=== PATIENT | female | born 1960 | race Caucasian/White ===

== ENCOUNTER 2021-07-15 19:20 | Outpatient (REF) | payer OTHER, SELFPAY | END 2021-07-15 19:21 | disposition home or self-care (01) | LOC: HO.LNP 19:20 | PROVIDERS: Visit Provider Family Medicine | DX: B34.9 Viral infection, unspecified (principal); Z20.822 Contact with and (suspected) exposure to COVID-19 | CPT/HCPCS: U0003; U0005 ==

== ENCOUNTER 2021-07-16 09:18 | Outpatient (REF) | payer OTHER, SELFPAY ==
[2021-07-16 10:55] LABS: Basophils Percent Auto 0.6 % (0-2); Eosinophils Percent Auto 1.2 % (0-4); Hematocrit 42.6 % (37-47); Hemoglobin 14.6 g/dl (12.0-16.0); Imm Gran Abs Auto 0.01 X10*3/uL (0.00-0.03); Imm Gran Pct Auto 0.3 % (0.0-0.4); Lymphocytes Absolute Auto 0.8 X10*3/uL (1.2-4.9); Lymphocytes Percent Auto 25.2 % (20-40); MANUAL DIFF FLAG SCAN; Mean Corpuscular HGB Conc 34.3 g/dl (31.0-35.0); Mean Corpuscular Hemoglobin 31.5 pg (27.0-33.0); Mean Platelet Volume 10.7 fL (9.4-12.3); Monocytes Absolute Auto 0.6 X10*3/uL (0.1-1.2); Neutrophils Absolute Auto 1.8 X10*3/uL (2.0-8.3); Neutrophils Percent Auto 55.7 % (45-73); Platelet Count 216 X10*3/uL (160-400); Red Blood Count 4.63 X10*6/uL (4.20-5.50); SCAN SMEAR FLAG 1; White Blood Count 3.3 X10*3/uL (4.8-10.8)
[2021-07-16 11:18] LABS: Alanine Aminotransferase 37 U/L (0-31); Albumin Level 4.1 g/dL (3.5-5.0); Alkaline Phosphatase 62 U/L (39-117); Anion Gap 16 (12-20); Aspartate Amino Transferase 35 U/L (5-31); Bilirubin Total 0.5 mg/dL (0.0-1.0); Blood Urea Nitrogen 3 mg/dL (9-16); Calcium 9.2 mg/dL (8.4-10.2); Carbon Dioxide 23 mmol/L (22-29); Chloride 104 mmol/L (96-108); Estimated Glomerular Filt Rate > 60; Glucose Random 109 mg/dL (60-115); Potassium 3.5 mmol/L (3.3-5.1); Sodium 139 mmol/L (135-145); Total Protein 7.1 g/dL (6.5-8.0)
[2021-07-16 11:30] LABS: SLIDE REVIEW VERIFIED
[2021-07-16 15:07] LABS: Leukocytes Stool Qualitative NEGATIVE (NEGATIVE)
[2021-07-16 15:23] LABS: CDiff Gene PCR NEGATIVE (Negative)
[2021-07-17 12:20] LABS: OBS Int Ctl Valid YES; OBS1 POSITIVE (NEGATIVE)
== END 2021-07-16 09:19 | disposition home or self-care (01) ==
LOC: HO.WFDLDS 09:18
PROVIDERS: Visit Provider Family Medicine
DX: Z00.00 Encounter for general adult medical examination without abnormal findings (principal); R19.7 Diarrhea, unspecified
CPT/HCPCS: 36415; 80053; 82272; 85025; 87045; 87046; 87493; 89055

== ENCOUNTER 2022-01-24 07:26 | Outpatient (REF) | payer OTHER, SELFPAY ==
[2022-01-24 07:34] LABS: MANUAL DIFF FLAG NO
[2022-01-24 08:42] LABS: Basophils Percent Auto 0.7 % (0-2); Eosinophils Absolute Auto 0.1 X10*3/uL (0.0-0.4); Eosinophils Percent Auto 1.9 % (0-4); Hemoglobin 12.9 g/dl (12.0-16.0); Imm Gran Abs Auto 0.01 X10*3/uL (0.00-0.03); Imm Gran Pct Auto 0.2 % (0.0-0.4); Lymphocytes Absolute Auto 1.5 X10*3/uL (1.2-4.9); Lymphocytes Percent Auto 34.7 % (20-40); Mean Corpuscular HGB Conc 33.1 g/dl (31.0-35.0); Mean Corpuscular Hemoglobin 31.4 pg (27.0-33.0); Mean Corpuscular Volume 94.9 fL (80.0-98.0); Mean Platelet Volume 10.5 fL (9.4-12.3); Monocytes Absolute Auto 0.5 X10*3/uL (0.1-1.2); Monocytes Percent Auto 12.8 % (2-11); Neutrophils Absolute Auto 2.1 x10*3/uL (2.0-8.3); Neutrophils Percent Auto 49.7 % (45-73); Platelet Count 250 X10*3/uL (160-400); Red Blood Count 4.11 X10*6/uL (4.20-5.50); Red Cell Distribution Width 11.6 % (11.0-16.0); White Blood Count 4.2 X10*3/uL (4.8-10.8)
[2022-01-24 09:16] LABS: Alanine Aminotransferase 18 U/L (0-31); Albumin Level 4.3 g/dL (3.5-5.0); Alkaline Phosphatase 52 U/L (39-117); Anion Gap 15 (12-20); Aspartate Amino Transferase 18 U/L (5-31); Bilirubin Total 0.9 mg/dL (0.0-1.0); Blood Urea Nitrogen 14 mg/dL (9-16); Calcium 9.7 mg/dL (8.4-10.2); Carbon Dioxide 25 mmol/L (22-29); Chloride 106 mmol/L (96-108); Cholesterol 276 mg/dL; Estimated Glomerular Filt Rate > 60; Glucose Fasting 98 mg/dL (60-99); HDL Cholesterol 122 mg/dL; LDL Cholesterol Calculated 136 mg/dl; Potassium 4.2 mmol/L (3.3-5.1); Sodium 142 mmol/L (135-145); Total Protein 7.1 g/dL (6.5-8.0); Triglycerides 91 mg/dL
== END 2022-01-24 07:27 | disposition home or self-care (01) ==
LOC: HO.LAB 07:26
PROVIDERS: PCP Internal Medicine; Visit Provider Internal Medicine
DX: Z00.00 Encounter for general adult medical examination without abnormal findings (principal)
CPT/HCPCS: 36415; 80053; 80061; 84443; 85025

== ENCOUNTER 2023-08-11 15:12 | Outpatient (REF) | payer OTHER, SELFPAY ==
--- NOTE | ~2023-08-11 | US_ITS ---
EXAMINATION: US THYROID CLINICAL INFORMATION: Other specified disorders of the thyroid. COMPARISON: None available. TECHNIQUE: Linear transducer grayscale and color Doppler examination with attention to the region of the thyroid. FINDINGS: SIZE: Measurements of the thyroid lobes and nodules are given in sagittal, anteroposterior and transverse dimensions respectively. Right Thyroid Lobe: 2.3 x 0.6 x 0.8 cm, volume 0.6 mL. Parenchyma: The gland echotexture is heterogeneous. Thyroid vascularity is normal. Left Thyroid Lobe: 2.8 x 0.7 x 0.9 cm, volume 0.93 mL. Parenchyma: The gland echotexture is heterogeneous. Thyroid vascularity is normal. Isthmus: 0.1 cm in maximum AP dimension. No focal thyroid nodule is seen. NODES: No lymphadenopathy is seen in the tissue surrounding the thyroid gland. Area of palpable concern corresponds to a benign-appearing 0.7 x 0.4 x 0.5 cm right cervical node. US/US thyroid IMPRESSION: Area of palpable concern corresponds to a benign-appearing 0.7 cm right cervical node. Heterogeneous thyroid which can be seen in the setting of thyroiditis.
== END 2023-08-11 15:13 | disposition home or self-care (01) ==
LOC: HO.US 15:12
PROVIDERS: PCP Internal Medicine; Visit Provider Internal Medicine
DX: E07.89 Other specified disorders of thyroid (principal)
CPT/HCPCS: 76536

== ENCOUNTER 2023-10-20 13:32 | Outpatient (AMB) | payer OTHER, SELFPAY ==
--- NOTE | 2023-10-20 13:36 | A.OFFPC_ITS ---
Vital Signs 10/20/23 13:37 Height 5 ft 6 in Weight 140 lb BMI 22.6 BP 150/78 H Blood Pressure Location Lt brachial Position Sitting Pulse 80 Pulse Source Pulse Oximeter Pulse Oximetry (%) 99 Oxygen Delivery Method Room Air Intake Visit Reasons: Annual Exam Sports Development Officer Required: No Project Systems Engineer: Not Required per policy Accompanied by: Self / Same As Patient Allergies No Known Allergies Allergy (Verified 10/20/23 13:37) Medication List - Last Reconciled 10/20/23 by Raul Medina MD clobetasol 0.05% grams topical 2XW hydrochlorothiazide 12.5 mg PO QAM levothyroxine 137 mcg PO DAILY Tobacco use date assessed: 10/20/23 Fall risk assessment: No Falls in past year Last assessed Fall Risk: 10/20/23 Dental Screening Dental Screen Date: 10/20/23 Did you have a dental visit in the last 12 months?: Yes Did you have a dental problem in the last 6 months where you did not have access to dental care?: No Was dental information given to patient?: Patient has dentist HPI Annual Exam HPI Details HTN and hypothyroidism PFSH Medical History Hypothyroidism Hypertension Surgical History History of parathyroidectomy History of wisdom tooth extraction History of tubal ligation Family History Father Pernicious anemia Hypertension Hyperthyroidism Myocardial infarction Diabetes Mother Hyperthyroidism Acute CVA (cerebrovascular accident) Valvular heart disease Paternal Grandmother Pernicious anemia Brother Hyperthyroidism Hypertension Housing: House Alcohol intake: current Alcohol intake frequency: a few times a week Patient Tobacco Use Status: Never used Tobacco e-Cigarette/Vaping Use: Never Used Second Hand Smoke Exposure: No service: No Current occupational status: employed Cognitive needs: No Hearing needs: No Vision needs: Yes (glasses) Questionnaire PHQ-9 Over the last 2 weeks, how often have you been bothered by any of the following problems? 1. Little interest or pleasure in doing things: not at all 2. Feeling down, depressed, or hopeless: not at all 3. Trouble falling or staying asleep, or sleeping too much: not at all 4. Feeling tired or having little energy: not at all 5. Poor appetite or overeating: not at all 6. Feeling bad about yourself - or that you are a failure or have let yourself or your family down: not at all 7. Trouble concentrating on things, such as reading the newspaper or watching television: not at all 8. Moving or speaking so slowly that other people could have noticed. Or the opposite - being so fidgety or restless that you have been moving around a lot more than usual: not at all 9. Thoughts that you would be better off or of hurting yourself in some way: not at all Total score: 0 Depression Screening Interpretation: Negative Depression Screening Done: Yes 47384 - PHQ-9 Billing: Yes Source: Developed by Drs. Hayder Arias, Melany Feng, Ciaran Boone and colleagues, with an educational cain from [employer]. Thrive Questionnaire Date Thrive assessed: 10/20/23 I am a: Patient What is your living situation today?: I have a steady place to live Within the past 12 months, did the food you bought not last and you didn't have the money to get more?: Never true Within the past 12 months, did you worry whether your food would run out before you got money to buy more?: Never true Do you have trouble paying for medicines?: No Do you have trouble getting transportation to medical appointments?: No Do you have trouble paying your heating and electricity bill?: No Do you have trouble taking care of your child, family member or friend?: No Do you have trouble with day-to-day activities such as bathing, preparing meals, shopping, managing finances, etc.?: No Are you currently unemployed and looking for a job?: No Are you interested in more education?: No Please select the resources that you would like help with: None AUDIT C Alcohol Use Questionnaire (AUDIT-C) 1. How often do you have a drink containing alcohol?: 2-3 times a week 2. How many drinks containing alcohol do you have on a typical day when you are drinking?: 1 or 2 Total Score: 3 Score Reviewed/Action Taken: Yes HIREN-7 AMB Questionnaire HIREN-7 Date HIREN - 7 assessed: 10/16/22 Source: Developed by Drs. Hayder Arias, Melany Feng, Ciaran Boone and colleagues, with an educational cain from [employer]. Review of Systems Const Denies chills, Denies fatigue, Denies headache(s) and Denies weight loss Eyes Denies change in vision, Denies diplopia and Denies eye pain ENT Denies vertigo, Denies dizziness, Denies headache(s) and Denies nasal discharge Card Denies chest pain, Denies rapid heart rate and Denies dyspnea on exertion Resp Denies chest congestion, Denies cough, Denies pain with cough and Denies dyspnea on exertion GI Denies abdominal pain, Denies hematochezia and Denies change in bowel habits Musc Denies myalgias, Denies arthralgias and Denies joint swelling Skin/Breast Denies lesions and Denies unusual bruising Neuro Denies vertigo, Denies dizziness, Denies headache(s) and Denies focal weakness Endo Denies fatigue Physical exam (Primary Care) Vital Signs: Last Vital Signs Pulse 80 10/20/23 13:37 BP 150/78 H 10/20/23 13:37 Pulse Ox 99 10/20/23 13:37 Oxygen Delivery Method Room Air 10/20/23 13:37 BMI result Body Mass Index 22.6 Tobacco/Smoking Status: Tobacco use Status Tobacco use date assessed 10/20/23 10/20/23 13:38 Patient Tobacco Use Status Never used Tobacco 10/20/23 13:38 e-Cigarette/Vaping Use Never Used 10/20/23 13:38 PHQ-9: PHQ-9 Score PHQ-9: Total score 0 10/20/23 13:42 Depression Screening Interpretation: Negative Thrive Assessment: Date of Thrive Assessment Date Thrive assessed 10/20/23 10/20/23 13:38 Const General: cooperative, healthy appearing and no acute distress Orientation/consciousness: oriented to person, oriented to place and oriented to time [facility] Head: Yes normal to inspection, Yes normocephalic and Yes atraumatic Mouth: Normal oral and palatal mucosa present and tongue normal Throat: Yes posterior oropharynx normal and Yes uvula midline Eyes General: appearance normal, both eyes and all related structures Neck Neck: Yes normal visual inspection, Yes full ROM and Yes no lymphadenopathy Thyroid: Thyroid normal Carotids: normal carotid upstroke Chest Chest palpation & inspection: normal inspection of the chest Resp Effort & Inspection: normal respiratory effort and able to speak in complete sentences Auscultation: clear to auscultation bilaterally Cardio Jugular venous distension: no JVD Palpation: normal PMI Rate: regular rate Rhythm: regular rhythm Heart sounds: S1 normal heart sound present and S2 normal heart sound present GI Inspection: Yes normal to inspection Palpation (GI): Soft to palpation and No hepatosplenomegaly present Auscultation: normal bowel sounds General: Yes no CVA tenderness Back/Spine/Pelvis Back: no CVA tenderness Skin General skin exam: no rashes or lesions noted Neuro General: oriented to person, oriented to place and oriented to time Extrem General: Yes normal to inspection and Yes full ROM Assessment and Plan Assessment & Plan (1) Physical exam: Code(s): Z00.00 - Encounter for general adult medical examination without abnormal findings Plan: stable (2) Hypothyroidism: Code(s): E03.9 - Hypothyroidism, unspecified Plan: same dose (3) Hypertension: Code(s): I10 - Essential (primary) hypertension Plan: recheck bp Orders: Orders Lipid Panel Today E78.5 - Hyperlipidemia, unspecified Thyroid Stimulating Hormone Today E03.9 - Hypothyroidism, unspecified Comprehensive [place]cas. Panel Fast Today N28.9 - Disorder of kidney and ureter, unspecified Complete Blood Count Auto Diff Today D64.9 - Anemia, unspecified Medications: New amoxicillin-pot clavulanate 500-125 mg (Augmentin) 1 tab PO BID PRN 10 tabs 0RF sinusitis 5 days Coding Level of Care Code New Pt Prev Care 40-64y(16288) Diagnoses Physical exam Z00.00 Hypothyroidism E03.9 Hypertension I10
[2023-10-20 13:37] VITALS: BP 150/78; PULSE 80; O2SAT 99; BMI 22.6
== END 2023-10-20 14:09 | disposition home or self-care (01) ==
PROVIDERS: Visit Provider Internal Medicine
DX: Z00.00 Encounter for general adult medical examination without abnormal findings (principal); E03.9 Hypothyroidism, unspecified; I10 Essential (primary) hypertension
CPT/HCPCS: 99386

== ENCOUNTER 2024-10-20 14:21 | Outpatient (AMB) | payer MEDICARE, SELFPAY ==
--- NOTE | 2024-10-20 14:21 | MHC.PC.OV ---
Vital Signs 10/20/24 14:24 Height 5 ft 6 in Weight 143 lb 2 oz BMI 23.1 BP 158/90 H Blood Pressure Location Lt brachial Position Sitting Pulse 80 Pulse Source Pulse Oximeter Pulse Oximetry (%) 97 Oxygen Delivery Method Room Air Intake Visit Reasons: annual Intake Note: Patient is here today for a physical. Bioinformatics Research Technician Required: No Technical Services Librarian: Not Required per policy Accompanied by: Self / Same As Patient Allergies No Known Allergies Allergy (Verified 10/20/24 14:23) Tobacco use date assessed: 10/20/24 Fall risk assessment: No Falls in past year Last assessed Fall Risk: 10/20/24 Dental Screening Dental Screen Date: 10/20/24 Did you have a dental visit in the last 12 months?: Yes Did you have a dental problem in the last 6 months where you did not have access to dental care?: No Was dental information given to patient?: Patient has dentist HPI annual HPI Details recently had a carotid endarterectome; has htn; compliant [facility] Medical History Hypothyroidism Hypertension Surgical History (Updated 10/20/24 @ 14:30 by NATHAN Perez) History of right-sided carotid endarterectomy History of parathyroidectomy History of wisdom tooth extraction History of tubal ligation Family History (Updated 10/20/24 @ 14:22 by NATHAN Perez) Father Pernicious anemia Hypertension Hyperthyroidism Myocardial infarction Diabetes Mother Hyperthyroidism Acute CVA (cerebrovascular accident) Valvular heart disease Paternal Grandmother Pernicious anemia Brother Hyperthyroidism Hypertension Social History Housing: House Alcohol intake: current Alcohol intake frequency: a few times a week Patient Tobacco Use Status: Never used Tobacco e-Cigarette/Vaping Use: Never Used Second Hand Smoke Exposure: No service: No Current occupational status: employed Cognitive needs: No Hearing needs: No Vision needs: Yes (glasses) Questionnaire PHQ-9 Over the last 2 weeks, how often have you been bothered by any of the following problems? 1. Little interest or pleasure in doing things: not at all 2. Feeling down, depressed, or hopeless: not at all 3. Trouble falling or staying asleep, or sleeping too much: not at all 4. Feeling tired or having little energy: not at all 5. Poor appetite or overeating: not at all 6. Feeling bad about yourself - or that you are a failure or have let yourself or your family down: not at all 7. Trouble concentrating on things, such as reading the newspaper or watching television: not at all 8. Moving or speaking so slowly that other people could have noticed. Or the opposite - being so fidgety or restless that you have been moving around a lot more than usual: not at all 9. Thoughts that you would be better off or of hurting yourself in some way: not at all Total score: 0 Depression Screening Interpretation: Negative Depression Screening Done: Yes Source: Developed by Drs. Hayder Arias, Melany Feng, Ciaran Boone and colleagues, with an educational cain from [employer]. Thrive Questionnaire Date Thrive assessed: 10/20/24 I am a: Patient What is your living situation today?: I have a steady place to live Within the past 12 months, did the food you bought not last and you didn't have the money to get more?: Never true Within the past 12 months, did you worry whether your food would run out before you got money to buy more?: Never true Do you have trouble paying for medicines?: No Do you have trouble getting transportation to medical appointments?: No Do you have trouble paying your heating and electricity bill?: No Do you have trouble taking care of your child, family member or friend?: No Do you have trouble with day-to-day activities such as bathing, preparing meals, shopping, managing finances, etc.?: No Are you currently unemployed and looking for a job?: No Are you interested in more education?: No Currently or been in a relationship where the following occur: No concerns reported THRIVE Score: 0 AUDIT C Alcohol Use Questionnaire (AUDIT-C) 1. How often do you have a drink containing alcohol?: 2-3 times a week 2. How many drinks containing alcohol do you have on a typical day when you are drinking?: 1 or 2 Total Score: 3 HIREN-7 AMB Questionnaire HIREN-7 Date HIREN - 7 assessed: 10/20/24 Feeling nervous, anxious, or on edge: 0 = Not at all Not being able to stop or control worryin = Not at all Worrying too much about different things: 0 = Not at all Trouble relaxin = Not at all Being so restless that it is hard to sit still: 0 = Not at all Becoming easily annoyed or irritable: 0 = Not at all Feeling afraid as if something awful might happen: 0 = Not at all Total HIREN-7 score (0-4 normal; 5-9 mild; 10-14 moderate; 15-21 severe): 0 Source: Developed by Drs. Hayder Arias, Melany Feng, Ciaran Boone and colleagues, with an educational cain from [employer]. Review of Systems Const Denies chills, Denies fatigue, Denies headache(s) and Denies weight loss Eyes Denies change in vision, Denies diplopia and Denies eye pain ENT Denies vertigo, Denies dizziness, Denies headache(s) and Denies nasal discharge Card Denies chest pain, Denies rapid heart rate and Denies dyspnea on exertion Resp Denies chest congestion, Denies cough, Denies pain with cough and Denies dyspnea on exertion GI Denies abdominal pain, Denies hematochezia and Denies change in bowel habits Musc Denies myalgias, Denies arthralgias and Denies joint swelling Skin/Breast Denies lesions and Denies unusual bruising Neuro Denies vertigo, Denies dizziness, Denies headache(s) and Denies focal weakness Endo Denies fatigue Physical exam (Primary Care) Vital Signs: Last Vital Signs Pulse 80 10/20/24 14:24 BP 158/90 H 10/20/24 14:24 Pulse Ox 97 10/20/24 14:24 Oxygen Delivery Method Room Air 10/20/24 14:24 BMI result Body Mass Index 23.1 Tobacco/Smoking Status: Tobacco use Status Tobacco use date assessed 10/20/24 10/20/24 14:32 Patient Tobacco Use Status Never used Tobacco 10/20/24 14:32 e-Cigarette/Vaping Use Never Used 10/20/24 14:32 PHQ-9: PHQ-9 Score PHQ-9: Total score 0 10/20/24 14:32 Depression Screening Interpretation: Negative Thrive Assessment: Date of Thrive Assessment Date Thrive assessed 10/20/24 10/20/24 14:32 Currently or been in a relationship where the following occur: No concerns reported Const General: cooperative, healthy appearing and no acute distress Orientation/consciousness: oriented to person, oriented to place and oriented to time HENMT Head: Yes normal to inspection, Yes normocephalic and Yes atraumatic Mouth: Normal oral and palatal mucosa present and tongue normal Throat: Yes posterior oropharynx normal and Yes uvula midline Eyes General: appearance normal, both eyes and all related structures Neck Neck: Yes normal visual inspection, Yes full ROM and Yes no lymphadenopathy Thyroid: Thyroid normal Carotids: normal carotid upstroke Chest Chest palpation & inspection: normal inspection of the chest Resp Effort & Inspection: normal respiratory effort and able to speak in complete sentences Auscultation: clear to auscultation bilaterally Cardio Jugular venous distension: no JVD Palpation: normal PMI Rate: regular rate Rhythm: regular rhythm Heart sounds: S1 normal heart sound present and S2 normal heart sound present GI Inspection: Yes normal to inspection Palpation (GI): Soft to palpation and No hepatosplenomegaly present Auscultation: normal bowel sounds General: Yes no CVA tenderness Back/Spine/Pelvis Back: no CVA tenderness Skin General skin exam: no rashes or lesions noted Neuro General: oriented to person, oriented to place and oriented to time Extrem General: Yes normal to inspection and Yes full ROM Coding Level of Care Code Est Pt Prev Care >65y(60878) Diagnoses Physical exam Z00.00 Hypertension I10 Hypothyroidism E03.9 Assessment & Plan Assessment & Plan (1) Physical exam: Code(s): Z00.00 - Encounter for general adult medical examination without abnormal findings Category: Medical Plan: stable; do labs (2) Hypertension: Code(s): I10 - Essential (primary) hypertension Category: Medical Plan: stable; same rx (3) Hypothyroidism: Code(s): E03.9 - Hypothyroidism, unspecified Category: Medical Plan: stable; same rx Orders: Orders US abdomen complete 10/20/24 R10.9 - Unspecified abdominal pain
[2024-10-20 14:24] VITALS: BP 158/90; PULSE 80; O2SAT 97; BMI 23.1
== END 2024-10-20 14:54 | disposition home or self-care (01) ==
PROVIDERS: PCP Internal Medicine; Visit Provider Internal Medicine
DX: I10 Essential (primary) hypertension (principal); E03.9 Hypothyroidism, unspecified

== ENCOUNTER → 2024-10-20 14:21 | Outpatient (BNVA) | payer MEDICARE, SELFPAY | PROVIDERS: PCP Internal Medicine; Visit Provider Internal Medicine | DX: Z00.00 Encounter for general adult medical examination without abnormal findings (principal); I10 Essential (primary) hypertension; E03.9 Hypothyroidism, unspecified | CPT/HCPCS: 96127; 99212 ==

== ENCOUNTER 2024-12-01 07:41 | Outpatient (REF) | payer MEDICARE, SELFPAY ==
--- NOTE | ~2024-12-01 | US_ITS ---
CLINICAL HISTORY: R10.9 - Unspecified abdominal pain Ultrasound of the abdomen Comparison: None Findings: The liver is normal in size, measuring 15.3cm. Normal echogenicity without focal lesions. No intrahepatic biliary ductal dilatation. No cholelithiasis. No gallbladder wall thickening or pericholecystic fluid. Negative Kim's sign. The common bile duct is normal, measuring 0.5cm. Unremarkable limited evaluation of the pancreas. No dilation of the pancreatic duct. The right kidney is normal in echogenicity and size, measuring 10.6cm. No hydronephrosis. There is nephrolithiasis measuring up to 0.7 cm. The left kidney is normal echogenicity and size, measuring 10.0cm. No hydronephrosis. There is nephrolithiasis measuring up to 1.2 cm. The spleen is without focal lesions and normal in size, measuring 9.5cm. There is a splenule measuring 1.6 x 1.6 x 1.9 cm The aorta and IVC are unremarkable. No ascites. Impression: No acute findings. Bilateral nephrolithiasis. This document has been electronically signed by: Kiersten Jang MD on 12/04/2024 17:12:54
== END 2024-12-01 07:42 | disposition home or self-care (01) ==
LOC: HO.US 07:41
PROVIDERS: PCP Internal Medicine; Visit Provider Internal Medicine
DX: R10.9 Unspecified abdominal pain (principal)
CPT/HCPCS: 76700

== ENCOUNTER → 2024-12-01 07:43 | Outpatient (BNV) | payer MEDICARE, SELFPAY | PROVIDERS: PCP Internal Medicine; Visit Provider Radiology Diagnostic Radiology | DX: R10.9 Unspecified abdominal pain (principal) | CPT/HCPCS: 76700 ==

== ENCOUNTER 2025-02-19 08:52 | Outpatient (AMB) | payer MEDICARE, OTHER, SELFPAY ==
--- NOTE | 2025-02-19 08:48 | A.OFFVIS_ITS ---
Intake Visit Reasons: bilateral kidney stones Intake Note: New patient presents today for initial visit for bilateral kidney stones Urology Medication:none Blood Thinner:Aspirin Antibiotic Allergies:none Allergies No Known Allergies Allergy (Verified 02/19/25 08:59) Medication List - Last Reconciled 02/19/25 by Kay Mccallum MD aspirin 81 mg PO DAILY clobetasol 0.05% grams topical 2XW ezetimibe 10 mg PO DAILY hydrochlorothiazide 12.5 mg PO QAM levothyroxine 137 mcg PO DAILY losartan 25 mg PO DAILY HPI Comments Details: Melany is a 64 year old female who is here for evaluation for kidney stones. 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 She states she has right sides pain. An abd US was done and bilateral nephrolithiasis was noted. Briefly discussed treatment options to include ESWL, pamphlet given. Emphasized the importance of adequate hydration- 48-64 ounces daily. Discussed Lemon has citrate which is a natural stone inhibitor. UA - today - blood negative. Abd US- 12/01/24--The right kidney is normal in echogenicity and size, measuring 10.6cm. No hydronephrosis. There is nephrolithiasis measuring up to 0.7 cm. The left kidney is normal echogenicity and size, measuring 10.0cm. No hydronephrosis. There is nephrolithiasis measuring up to 1.2 cm. Further evaluation with CTKUB, 24 hr urine. [facility] Medical History Hypothyroidism Hypertension Surgical History History of right-sided carotid endarterectomy History of parathyroidectomy History of wisdom tooth extraction History of tubal ligation Family History Father Pernicious anemia Hypertension Hyperthyroidism Myocardial infarction Diabetes Mother Hyperthyroidism Acute CVA (cerebrovascular accident) Valvular heart disease Paternal Grandmother Pernicious anemia Brother Hyperthyroidism Hypertension Social History Housing: House Alcohol intake: current Alcohol intake frequency: a few times a week Patient Tobacco Use Status: Never used Tobacco e-Cigarette/Vaping Use: Never Used Second Hand Smoke Exposure: No service: No Current occupational status: employed Cognitive needs: No Hearing needs: No Vision needs: Yes (glasses) Review of Systems Const All systems reviewed & are unremarkable except as noted in HPI and below Reports no additional complaints Eyes Reports no additional complaints ENT Reports no additional complaints Card Reports no additional complaints Resp Reports no additional complaints GI Reports no additional complaints Reports as per HPI Musc Reports no additional complaints Skin/Breast Reports system reviewed and no additional complaints, except as documented Neuro Reports no additional complaints Psych Reports no additional complaints Endo Reports no additional complaints Abdulaziz/Lymph Reports no additional complaints Aller/Immun Reports no additional complaints Physical Exam Const General: cooperative, healthy appearing and no acute distress Orientation/consciousness: patient oriented x3 HEENT Head: Yes normal to inspection, Yes normocephalic and Yes atraumatic Eyes Conjunctivae: conjunctivae normal Neck Neck: Yes normal visual inspection and Yes trachea midline Chest Chest palpation & inspection: normal inspection of the chest Resp Effort & Inspection: normal respiratory effort GI Inspection: Yes normal to inspection Neuro General: patient oriented x3 Psych Appearance: grossly normal Results Reviewed Results Reviewed: Date of Service: 12/01/24 Ultrasound of the abdomen Comparison: None Findings: The liver is normal in size, measuring 15.3cm. Normal echogenicity without focal lesions. No intrahepatic biliary ductal dilatation. No cholelithiasis. No gallbladder wall thickening or pericholecystic fluid. Negative Kim's sign. The common bile duct is normal, measuring 0.5cm. Unremarkable limited evaluation of the pancreas. No dilation of the pancreatic duct. The right kidney is normal in echogenicity and size, measuring 10.6cm. No hydronephrosis. There is nephrolithiasis measuring up to 0.7 cm. The left kidney is normal echogenicity and size, measuring 10.0cm. No hydronephrosis. There is nephrolithiasis measuring up to 1.2 cm. The spleen is without focal lesions and normal in size, measuring 9.5cm. There is a splenule measuring 1.6 x 1.6 x 1.9 cm The aorta and IVC are unremarkable. No ascites. Impression: No acute findings. Bilateral nephrolithiasis. Assessment & Plan Assessment & Plan (1) Bilateral kidney stones: Code(s): N20.0 - Calculus of kidney Category: Medical (2) Abdominal pain, right lateral: Code(s): R10.9 - Unspecified abdominal pain Category: Medical Plan CT KUB 24 hr urine Orders: Orders CT kidney stone Today N20.0 - Calculus of kidney, R10.9 - Unspecified abdominal pain Patient Instructions: The patient had an opportunity to ask questions regarding treatment plan. The patient expressed understanding and agreement with the above treatment plan. The patient is aware they should contact our office by phone for worsening of their current condition or the appearance of new symptoms. Compliance is encouraged with any medications and followup testing that is ordered. It is a privilege to be allowed the opportunity to participate in the urologic care of your patient. If you have any questions or concerns regarding treatment for the above conditions please do not hesitate to contact me. The office telephone contact is [phone]. This note is constructed in part using voice recognition software. While every effort has been made to ensure accuracy process safety specialist errors may have been included. Yours sincerely, Kay Mccallum MD Scribe Plan - Not visible on output: Patient was informed and verbally consented to the use of an ambient scribe for clinic note documentation during this visit. Coding Level of Care Code New Pt Level 4 (08223) Diagnoses Bilateral kidney stones N20.0 Abdominal pain, right lateral R10.9
== END 2025-02-19 09:39 | disposition home or self-care (01) ==
PROVIDERS: PCP Internal Medicine; Visit Provider Urology
DX: N20.0 Calculus of kidney (principal); R10.9 Unspecified abdominal pain; Z13.9 Encounter for screening, unspecified
CPT/HCPCS: 99204

== ENCOUNTER → 2025-02-19 08:52 | Outpatient (BNVA) | payer MEDICARE, SELFPAY | PROVIDERS: PCP Internal Medicine; Visit Provider Urology | DX: N20.0 Calculus of kidney (principal); R10.9 Unspecified abdominal pain | CPT/HCPCS: 81003; 99202 ==

== ENCOUNTER 2025-03-22 08:26 | Outpatient (AMB) | payer MEDICARE, OTHER, SELFPAY ==
[2025-03-22 08:37] VITALS: BP 138/90; PULSE 80; TEMP 36.8; O2SAT 95
--- NOTE | 2025-03-22 08:37 | AM.OFFWIN_ITS ---
Intake Vital Signs 03/22/25 08:37 Weight 145 lb BP 138/90 H Blood Pressure Location Lt brachial Position Sitting Pulse 80 Pulse Source Pulse Oximeter Temp 98.3 F Temp Source Oral Pulse Oximetry (%) 95 Oxygen Delivery Method Room Air Intake Visit Reasons: EP Sore throat Intake Note: Patient here for sore throat that started last night but has had some cold symptoms for about 1 week now. Patient Tobacco Use Status: Never used Tobacco Allergies No Known Allergies Allergy (Verified 03/22/25 08:38) Do you need a note to return to daycare/school/sports/work: Yes HPI HPI Comments History of Present Illness Details 64 y/o Female patient who presents to [facility] with c/o URI symptoms that started last . Reports Sore-throat since last night. [facility] Medical History (Updated 03/22/25 @ 09:05 by More Ignacio NP) Acute respiratory disease Hypothyroidism Hypertension Surgical History History of right-sided carotid endarterectomy History of parathyroidectomy History of wisdom tooth extraction History of tubal ligation Family History Father Pernicious anemia Hypertension Hyperthyroidism Myocardial infarction Diabetes Mother Hyperthyroidism Acute CVA (cerebrovascular accident) Valvular heart disease Paternal Grandmother Pernicious anemia Brother Hyperthyroidism Hypertension Social History Housing: House Alcohol intake: current Alcohol intake frequency: a few times a week Patient Tobacco Use Status: Never used Tobacco e-Cigarette/Vaping Use: Never Used Second Hand Smoke Exposure: No service: No Current occupational status: employed Cognitive needs: No Hearing needs: No Vision needs: Yes (glasses) Review of Systems Const All systems reviewed & are unremarkable except as noted in HPI and below Physical Exam Vital Signs: Last Vital Signs Temp 98.3 F 03/22/25 08:37 Pulse 80 03/22/25 08:37 BP 138/90 H 03/22/25 08:37 Pulse Ox 95 03/22/25 08:37 Oxygen Delivery Method Room Air 03/22/25 08:37 Const General: no acute distress Nutritional Appearance: well nourished Orientation/consciousness: patient oriented x3 HEENT Head: Yes normocephalic Ears: external ears normal and TM abnormal bulging and with fluid behind the TM bilateral General nose exam: Nasal discharge present Face and sinus: Yes sinus tenderness Mouth: Abnormal oral and palatal mucosa present erythematous Throat: Yes tonsils normal and Yes uvula midline Resp Effort & Inspection: normal respiratory effort and able to speak in complete sentences Auscultation: clear to auscultation bilaterally, no crackles, no rales, no rhonchi and no wheezes Cardio Rhythm: regular rhythm Heart sounds: S1 normal heart sound present and S2 normal heart sound present Neuro General: patient oriented x3, gait normal and moves all extremities Psych Speech and movement: Normal speech and movement present Results AMB Rapid Strep AMB Rapid Strep Negative Last Edit by DARIA Warren on 03/22/25 08:56 Results Reviewed Results Reviewed: Laboratory Last Values Strep Scn Rapid Clinic Negative 03/22/25 08:56 Assessment & Plan Assessment & Plan (1) Acute respiratory disease: Code(s): J06.9 - Acute upper respiratory infection, unspecified Plan: Rapid Strep Negative. OTC cold/Flu remedies. Acetaminophen for pain relief. Hydrate with Warm fluids and Honey. Orders: Orders AMB Rapid Strep Screen Today Z13.9 - Encounter for screening, unspecified Coding Level of Care Code Est Pt Level 4 (28214) Diagnoses Acute respiratory disease J06.9 Time Spent (min) 20
== END 2025-03-22 09:15 | disposition home or self-care (01) ==
PROVIDERS: Visit Provider Nurse Practitioner Family
DX: Z13.9 Encounter for screening, unspecified (principal); J06.9 Acute upper respiratory infection, unspecified

== ENCOUNTER → 2025-03-22 08:26 | Outpatient (BNVA) | payer MEDICARE, OTHER, SELFPAY | PROVIDERS: Visit Provider Nurse Practitioner Family | DX: J06.9 Acute upper respiratory infection, unspecified (principal) | CPT/HCPCS: 87880; 99212 ==

== ENCOUNTER 2025-05-22 07:20 | Outpatient (REF) | payer MEDICARE, OTHER, SELFPAY ==
--- NOTE | ~2025-05-22 | CT_ITS ---
CLINICAL HISTORY: N20.0 - Calculus of kidney CT abdomen and pelvis without contrast Comparison: None provided Findings: Lung bases clear. No acute bony abnormality. Degenerative change throughout the spine. Bilateral hip prostheses. 1.5 x 2.9 cm solid hypodense right hepatic lesion. This lies subcapsular lateral aspect of right lobe. Finding not otherwise assessable without IV contrast. Hemangioma is possible, recommend short-term follow-up. Pancreas, Spleen and adrenal glands unremarkable. Gallbladder within normal limits. Punctate bilateral nonobstructing renal stones. No ureteral stone or hydronephrosis. No evidence for aortic aneurysm. No free fluid or adenopathy in the pelvis. No diverticulitis. Appendix unremarkable. Hysterectomy. No adnexal abnormality. Impression: Indeterminate lateral right hepatic solid lesion Possible hemangioma, recommend follow-up hemangioma protocol CT or MRI Bilateral nonobstructing renal stones This document has been electronically signed by: Maxime Parra MD on 05/22/2025 23:44:11
--- OUTSIDE RECORDS SUMMARY | 2025-05-22 07:22 | XMS_ITS | Patient Health Record ---
Author Organization [facility] Address [address] [place] [address] Care Team Providers Care Professor Of Violin Name Role Phone Raul Medina MD Primary Care Provider Hayder Zapata Unavailable [phone] Reason For Referral No Information Medications Medication SIG (Take, Route, Fr equency, Duration) Notes Start Date End Date Status Levoxyl 137 MCG 1 tablet in the morn ing on an empty stomach Orally Once a day Active Immunizations Vaccine Route Administration Date Status Comme nts Influenza Unknown 10/03/2019 Administered Social History Alcohol Screen Question Answer Notes Did you have a drink contain ing alcohol in the past year? Yes How often did you have a dri nk containing alcohol in the past year? 2 to 4 times a month (2 points) How many drinks did you have on a typical day when you were drinking in the past year? 1 or 2 drinks (0 point) How often did you have 6 or more drinks on one occasion in the past year? Never (0 point) Points 2 Interpretation Negative Section Notes: She does not smoke or use an y significant amounts of alcohol She does not smoke or use an y significant amounts of alcohol Problems Problem Type SNOMED Code ICD Code Onset Dates Problem Status W/U Status Risk Notes Problem [id number] Encounter for screening for malignant neoplasm of colon (Z12.11) Active confirmed Problem [id number] Preprocedural examination (Z01.818) Active confirmed Plan Of Treatment Future Test Test Name Order Date COLONOSCOPY 03/04/2012 Next Appt Details Provider Name:Hayder Jamel Long , 06/13/2025 01:20:00 PM, [address], [address], [place], [address], Insurance Providers Payer Name Payer Address Payer Phone Subscriber Number Group Number Insured Name Patient Relationship to Insured Coverage Start Date Coverage End Date [employer] [place] [address] [address] [place] [address] [id number] CONNIE MORIN TERESA Self - patient is the insured MEDICARE OF [facility] [address] [place] [address] [phone] [id number] CONNIE MORIN TERESA Self - patient is the insured 4 Medical (General) History Medical History History ICD Code Hypothyroidism Denies AL,DM,CVA,Lung disease,renal dise ase Neg. screening colonoscopy in 02/2012 Surgical History Surgery Date(Month/Year) parathyroidectomy left hip replacement 11/06/2019 right hip replacement 11/2018 tubal ligation
== END 2025-05-22 07:21 | disposition home or self-care (01) ==
LOC: HO.CT 07:20
PROVIDERS: Visit Provider Urology
DX: N20.0 Calculus of kidney (principal); R10.9 Unspecified abdominal pain
CPT/HCPCS: 74176

== ENCOUNTER → 2025-05-22 07:21 | Outpatient (BNV) | payer MEDICARE, OTHER, SELFPAY | PROVIDERS: Visit Provider Radiology Diagnostic Radiology | DX: N20.0 Calculus of kidney (principal); K76.89 Other specified diseases of liver | CPT/HCPCS: 74176 ==

== ENCOUNTER 2025-05-24 08:26 | Outpatient (AMB) | payer OTHER, MEDICARE, SELFPAY ==
--- NOTE | 2025-05-24 08:33 | MHC.OFFVIS ---
Intake Visit Reasons: 13w/CT/[facility] Intake Note: Patient presents today for 13w follow up/CT/[facility] Abdomen & Pelvis CT 05/22 [facility] comp. 05/08 Urology Medication:none Blood Thinner:Aspirin Antibiotic Allergies:none Allergies No Known Allergies Allergy (Verified 07/06/25 11:25) HPI Comments Details: 05/24/25 History of Present Illness - The patient is a 64-year-old female presenting with recurrent kidney stones. - The patient has a history of recurrent kidney stones, with a recent CAT scan showing persistent bilateral nonobstructing kidney stones. - A 24-hour urine collection revealed a urine volume of 3.58 liters, normal urine calcium and oxalate levels, but elevated urine sodium at 221 mg. - The patient has a history of hyperthyroidism and is status post partial parathyroidectomy. - An incidental liver lesion measuring 1.5 x 2.9 cm was noted on a recent CT scan. Results - 24-hour urine collection: Urine volume 3.58 liters, urine calcium 178 mg, urine oxalate 25 mg, urine sodium 221 mg, urine citrate 506 mg. - CT scan (05/22/25): Persistent bilateral nonobstructing kidney stones, incidental liver lesion 1.5 x 2.9 cm. 02/19/25--Melany is a 64 year old female who is here for evaluation for kidney stones. 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 She states she has right sides pain. An abd US was done and bilateral nephrolithiasis was noted. Briefly discussed treatment options to include ESWL, pamphlet given. Emphasized the importance of adequate hydration- 48-64 ounces daily. Discussed Lemon has citrate which is a natural stone inhibitor. UA - today - blood negative. Abd US- 12/01/24--The right kidney is normal in echogenicity and size, measuring 10.6cm. No hydronephrosis. There is nephrolithiasis measuring up to 0.7 cm. The left kidney is normal echogenicity and size, measuring 10.0cm. No hydronephrosis. There is nephrolithiasis measuring up to 1.2 cm. Further evaluation with CTKUB, 24 hr urine. [facility] Medical History Acute respiratory disease Hypothyroidism Hypertension Surgical History History of right-sided carotid endarterectomy History of parathyroidectomy History of wisdom tooth extraction History of tubal ligation Family History Father Pernicious anemia Hypertension Hyperthyroidism Myocardial infarction Diabetes Mother Hyperthyroidism Acute CVA (cerebrovascular accident) Valvular heart disease Paternal Grandmother Pernicious anemia Brother Hyperthyroidism Hypertension Social History Housing: House Alcohol intake: current Alcohol intake frequency: a few times a week Patient Tobacco Use Status: Never used Tobacco e-Cigarette/Vaping Use: Never Used Second Hand Smoke Exposure: No service: No Current occupational status: employed Cognitive needs: No Hearing needs: No Vision needs: Yes (glasses) Review of Systems Const All systems reviewed & are unremarkable except as noted in HPI and below Reports no additional complaints Eyes Reports no additional complaints ENT Reports no additional complaints Card Reports no additional complaints Resp Reports no additional complaints GI Reports no additional complaints Reports as per HPI Musc Reports no additional complaints Skin/Breast Reports system reviewed and no additional complaints, except as documented Neuro Reports no additional complaints Psych Reports no additional complaints Endo Reports no additional complaints Abdulaziz/Lymph Reports no additional complaints Aller/Immun Reports no additional complaints Results Reviewed Results Reviewed: Date of Service: 05/22/25 CLINICAL HISTORY: N20.0 - Calculus of kidney CT abdomen and pelvis without contrast Comparison: None provided Findings: Lung bases clear. No acute bony abnormality. Degenerative change throughout the spine. Bilateral hip prostheses. 1.5 x 2.9 cm solid hypodense right hepatic lesion. This lies subcapsular lateral aspect of right lobe. Finding not otherwise assessable without IV contrast. Hemangioma is possible, recommend short-term follow-up. Pancreas, Spleen and adrenal glands unremarkable. Gallbladder within normal limits. Punctate bilateral nonobstructing renal stones. No ureteral stone or hydronephrosis. No evidence for aortic aneurysm. No free fluid or adenopathy in the pelvis. No diverticulitis. Appendix unremarkable. Hysterectomy. No adnexal abnormality. Impression: Indeterminate lateral right hepatic solid lesion Possible hemangioma, recommend follow-up hemangioma protocol CT or MRI Bilateral nonobstructing renal stones Date of Service: 12/01/24 Ultrasound of the abdomen Comparison: None Findings: The liver is normal in size, measuring 15.3cm. Normal echogenicity without focal lesions. No intrahepatic biliary ductal dilatation. No cholelithiasis. No gallbladder wall thickening or pericholecystic fluid. Negative Kim's sign. The common bile duct is normal, measuring 0.5cm. Unremarkable limited evaluation of the pancreas. No dilation of the pancreatic duct. The right kidney is normal in echogenicity and size, measuring 10.6cm. No hydronephrosis. There is nephrolithiasis measuring up to 0.7 cm. The left kidney is normal echogenicity and size, measuring 10.0cm. No hydronephrosis. There is nephrolithiasis measuring up to 1.2 cm. The spleen is without focal lesions and normal in size, measuring 9.5cm. There is a splenule measuring 1.6 x 1.6 x 1.9 cm The aorta and IVC are unremarkable. No ascites. Impression: No acute findings. Bilateral nephrolithiasis. Assessment & Plan Assessment & Plan (1) Bilateral kidney stones: Code(s): N20.0 - Calculus of kidney Category: Medical (2) Abdominal pain, right lateral: Code(s): R10.9 - Unspecified abdominal pain Category: Medical (3) Liver lesion: Code(s): K76.9 - Liver disease, unspecified Category: Medical Plan Plan - Recommend dietary modifications to reduce sodium intake due to elevated urine sodium levels. - Refer to nephrology for further evaluation of recurrent kidney stones. - Refer to gastroenterology for assessment of the incidental liver lesion. - Plan a follow-up ultrasound in nine months to monitor kidney stones. - Consider further imaging to accurately measure the size of the right kidney stone and discuss treatment options if it is larger than 5 mm. Orders: Orders US renal BI 9 Months N20.0 - Calculus of kidney Referrals Nephrology Referral N20.0 - Calculus of kidney Gastroenterology Referral K76.9 - Liver disease, unspecified Patient Instructions: The patient had an opportunity to ask questions regarding treatment plan. The patient expressed understanding and agreement with the above treatment plan. The patient is aware they should contact our office by phone for worsening of their current condition or the appearance of new symptoms. Compliance is encouraged with any medications and followup testing that is ordered. It is a privilege to be allowed the opportunity to participate in the urologic care of your patient. If you have any questions or concerns regarding treatment for the above conditions please do not hesitate to contact me. The office telephone contact is [phone]. This note is constructed in part using voice recognition software. While every effort has been made to ensure accuracy instrument lens grinder errors may have been included. Yours sincerely, Kay Mccallum MD Scribe Plan - Not visible on output: Patient was informed and verbally consented to the use of an ambient scribe for clinic note documentation during this visit. Coding Level of Care Code Est Pt Level 4 (08221) Complex EM visit Add On G2211 Diagnoses Bilateral kidney stones N20.0 Abdominal pain, right lateral R10.9 Liver lesion K76.9
--- OUTSIDE RECORDS SUMMARY | 2025-05-24 08:48 | XMS_ITS | Patient Health Record ---
Author Organization [facility] Address [address] [place] [address] Care Team Providers Care Business Intern Name Role Phone Raul Medina MD Primary Care Provider Hayder Zapata Unavailable [phone] Reason For Referral No Information Medications Medication [...] Problem Status W/U Status Risk Notes Problem [id number] Encounter for screening for malignant neoplasm of colon (Z12.11) Active confirmed Problem [id number] Preprocedural examination (Z01.818) Active confirmed Plan Of Treatment Future Test Test Name Order Date COLONOSCOPY 03/04/2012 Next Appt Details Provider Name:Hayder Jamel Long , 06/13/2025 01:20:00 PM, [address], [address], [place], [address], Insurance Providers Payer Name Payer Address Payer Phone Subscriber Number Group Number Insured Name Patient Relationship to Insured Coverage Start Date Coverage End Date [employer] [place] [address] [address] [place] [address] [id number] 3 CONNIE MORIN TERESA Self - patient is the insured MEDICARE OF [facility] [address] [place] [address] [phone] [id number] CONNIE MORIN TERESA Self - patient is the insured 4 Medical (General) History Medical History History ICD Code Hypothyroidism Denies PA,DM,CVA,Lung disease,renal dise ase Neg. screening colonoscopy in 02/2012 Surgical History Surgery Date(Month/Year) parathyroidectomy left hip replacement 11/06/2019 right hip replacement 11/2018 tubal ligation
== END 2025-05-24 09:27 | disposition home or self-care (01) ==
LOC: HO.HUSH 08:27
PROVIDERS: PCP Internal Medicine; Visit Provider Urology
DX: N20.0 Calculus of kidney (principal); R10.9 Unspecified abdominal pain; K76.9 Liver disease, unspecified
CPT/HCPCS: 99214

== ENCOUNTER 2025-07-06 11:09 | Outpatient (AMB) | payer OTHER, MEDICARE, SELFPAY ==
--- OUTSIDE RECORDS SUMMARY | 2025-07-06 11:14 | XMS_ITS | Patient Health Record ---
Author Organization [facility] Address [address] [place] [id number] Care Team Providers Care Drive Tester Name Role Phone Monserrat Cartwright Primary Care Provider Hayder Diaz Unavailable [phone] Allergies No Known Allergies Reason For Referral No Information Medications Medication SIG (Take, Route, Frequency, Duration) Notes Start Date End Date Status Levoxyl 137 MCG 1 tablet in the morn ing on an empty stomach Orally Once a day Active Zetia 10 MG 1 tablet Orally Once a day 06/13/2025 Active hydroCHLOROthiazide 12.5 MG 1 capsule in the morning Orally Once a day Active Aspirin 81 MG 1 tablet Orally Once a day Active Losartan Potassium 25 MG 1 tablet Orally Once a day Active Immunizations Vaccine Route Administration Date Status Comme nts Influenza Unknown 10/03/2019 Administered Influenza Unknown 08/15/2024 Administered Social History Alcohol Screen Question Answer [...] Problem Status W/U Status Risk Notes Problem Colon cancer screening (484413768) Colon cancer screening (Z12.11) Active confirmed Problem [id number] Preprocedural examination (Z01.818) Active confirmed Problem Liver mass (593863677) Liver mass (R16.0) Active confirmed Problem Abnormal findings diagnostic imaging of liver and biliary tract (915799526) Abnormal liver ultrasound (R93.2) Active confirmed Vital Signs Temperature 95.7 degrees Fahrenheit 06/13/2025 Blood pressure diastolic 01 mm Hg 06/13/2025 Height 66 in 06/13/2025 Blood pressure systolic 001 mm Hg 06/13/2025 Weight 146.4 lbs 06/13/2025 BMI 23.63 kg/m2 06/13/2025 Procedures Procedure Date Ordered Date Performed Result Body Sit e COLONOSCOPY 06/13/2025 N/A Encounters Encounter Location Date Provider Diagnosis [facility] [address] [place] [address] 06/13/2025 Hayder Long Liver mass R16.0 ; Abnormal liver ultrasound R93.2 and Colon cancer screening Z12.11 Assessments Encounter Date Diagnosis (ICD Code) Assessment Notes Treatment Notes Treatment Clinical Notes Section Notes 06/13/2025 Liver mass (ICD-10 - R16.0) Overall, Melany appears quite well and is not having any new or worrisome GI complaints. I did recommend a follow-up colonoscopy for screening purposes given her last exam being in 2011. We did review the rationale for this in regard to colon cancer prevention. Full consent has been obtained for this, including risks of bleeding and perforation. The procedure will be done with monitored anesthesia care. She was given the below instructions regarding adjustment of her medications for the procedure. We did review her family history of gastric cancer in her father and his brother. She is not having any upper GI symptoms whatsoever and does not have any risk factors for gastric cancer such as alcohol use or smoking. I do not think she definitively requires endoscopy for the family history of gastric cancer but I did advise her that if she would like to do that I can certainly do that on the same day and assess for any H. pylori in the stomach. I told her to let me know that and we could always add the upper endoscopy on to the colonoscopy for the same day. In regards to the liver lesion seen on the recent CT scan we did review that this appears to be a very incidental finding and most likely a hemangioma. Of note she did have an ultrasound of the liver in November 2024 that does not mention any liver lesion. I did recommend we try to get a MRI of the liver with contrast to further assess for a hemangioma. I shall check the below laboratories including an alpha-fetoprotei n level. If the MRI confirms the diagnosis of a hemangioma then I do not think any further evaluation of that would be required. Melany was comfortable with this plan. Thank you again for allowing me to participate in Melany's care. I shall continue to keep you advised of her progress. 06/13/2025 Abnormal liver ultrasound (ICD-10 - R93.2) Overall, Melany appears quite well and is not having any new or worrisome GI complaints. I did recommend a follow-up colonoscopy for screening purposes given her last exam being in 2011. We did review the rationale for this in regard to colon cancer prevention. Full consent has been obtained for this, including risks of bleeding and perforation. The procedure will be done with monitored anesthesia care. She was given the below instructions regarding adjustment of her medications for the procedure. We did review her family history of gastric cancer in her father and his brother. She is not having any upper GI symptoms whatsoever and does not have any risk factors for gastric cancer such as alcohol use or smoking. I do not think she definitively requires endoscopy for the family history of gastric cancer but I did advise her that if she would like to do that I can certainly do that on the same day and assess for any H. pylori in the stomach. I told her to let me know that and we could always add the upper endoscopy on to the colonoscopy for the same day. In regards to the liver lesion seen on the recent CT scan we did review that this appears to be a very incidental finding and most likely a hemangioma. Of note she did have an ultrasound of the liver in November 2024 that does not mention any liver lesion. I did recommend we try to get a MRI of the liver with contrast to further assess for a hemangioma. I shall check the below laboratories including an alpha-fetoprotei n level. If the MRI confirms the diagnosis of a hemangioma then I do not think any further evaluation of that would be required. Melany was comfortable with this plan. Thank you again for allowing me to participate in Melany's care. I shall continue to keep you advised of her progress. 06/13/2025 Colon cancer screening (ICD-10 - Z12.11) Overall, Melany appears quite well and is not having any new or worrisome GI complaints. I did recommend a follow-up colonoscopy for screening purposes given her last exam being in 2011. We did review the rationale for this in regard to colon cancer prevention. Full consent has been obtained for this, including risks of bleeding and perforation. The procedure will be done with monitored anesthesia care. She was given the below instructions regarding adjustment of her medications for the procedure. We did review her family history of gastric cancer in her father and his brother. She is not having any upper GI symptoms whatsoever and does not have any risk factors for gastric cancer such as alcohol use or smoking. I do not think she definitively requires endoscopy for the family history of gastric cancer but I did advise her that if she would like to do that I can certainly do that on the same day and assess for any H. pylori in the stomach. I told her to let me know that and we could always add the upper endoscopy on to the colonoscopy for the same day. In regards to the liver lesion seen on the recent CT scan we did review that this appears to be a very incidental finding and most likely a hemangioma. Of note she did have an ultrasound of the liver in November 2024 that does not mention any liver lesion. I did recommend we try to get a MRI of the liver with contrast to further assess for a hemangioma. I shall check the below laboratories including an alpha-fetoprotei n level. If the MRI confirms the diagnosis of a hemangioma then I do not think any further evaluation of that would be required. Melany was comfortable with this plan. Thank you again for allowing me to participate in Melany's care. I shall continue to keep you advised of her progress. Plan Of Treatment Pending Test Test Name Order Date COLONOSCOPY 06/13/2025 BUN 06/13/2025 LIVER PROFILE 06/13/2025 CEA 06/13/2025 CBC w DIFF 06/13/2025 ALPHA-FETOPROTEIN,TUMOR MARKER MRI ABD W&WO CONTRAST 06/13/2025 Creatinine 06/13/2025 Future Test Test Name Order Date COLONOSCOPY 03/04/2012 Next Appt Details Provider Name:Hayder Long , 09/05/2025 10:40:00 AM, [address] [place] [address] [place], [phone], Insurance Providers Payer Name Payer Address Payer Phone Subscriber Number Group Number Insured Name Patient Relationship to Insured Coverage Start Date Coverage End Date [employer] [address] [address] [place] [address] [id number] MELANY STUART Self - patient is the insured Medical (General) History Medical History History ICD Code Hypothyroidism Denies NM,DM,CVA,Lung disease,renal dise ase Neg. screening colonoscopy in 02/2012 TIA HTN Kidney stones Liver lesion of the right he patic lobe seen on CT scan without contrast in April 2025. Surgical History Surgery Date(Month/Year) right carotid endarterectomy 06/2024 tubal ligation right hip replacement 11/2018 left hip replacement 11/06/2019 parathyroidectomy
--- NOTE | 2025-07-06 11:22 | HO.NEPHOV_ITS ---
Vital Signs 07/06/25 11:26 Height 5 ft 6 in Weight 144 lb 6 oz BMI 23.3 BP 132/70 Blood Pressure Location Lt brachial Position Sitting Pulse 76 Pulse Source Pulse Oximeter Pulse Oximetry (%) 98 Oxygen Delivery Method Room Air Intake Visit Reasons: INP: Calculus of kidney-LVM Bookbinder Apprentice Required: No Accompanied by: Self / Same As Patient Allergies No Known Allergies Allergy (Verified 07/06/25 11:25) HPI Comments Details: 4-year-old lady with past medical history of hypertension, hyperthyroidism, status post partial parathyroidectomy for hyperparathyroidism in does not remember much details about it, it was done after a 24 hour urine checkup which showed hypercalcuria and recurrent renal stones is here to establish care. She had [facility] done on 05/08/2025 which showed 3.5 L urine volume, high uric acid content in the urine, high urine sodium, pH 6.7, low citrate in urine and low calcium oxalate super saturations. She had CT abdomen and pelvis done in 04/2025 which showed bilateral multiple kidney stones with largest on the right measuring 5.5 mm similar finding were noted on ultrasound in November 2024 [facility] Medical History Acute respiratory disease Hypothyroidism Hypertension Surgical History History of right-sided carotid endarterectomy History of parathyroidectomy History of wisdom tooth extraction History of tubal ligation Family History Father Pernicious anemia Hypertension Hyperthyroidism Myocardial infarction Diabetes Mother Hyperthyroidism Acute CVA (cerebrovascular accident) Valvular heart disease Paternal Grandmother Pernicious anemia Brother Hyperthyroidism Hypertension Social History Housing: House Alcohol intake: current Alcohol intake frequency: a few times a week Patient Tobacco Use Status: Never used Tobacco e-Cigarette/Vaping Use: Never Used Second Hand Smoke Exposure: No service: No Current occupational status: employed Cognitive needs: No Hearing needs: No Vision needs: Yes (glasses) Review of Systems Const Details: Const : no body aches, no chills, no fever Eyes: no blurry vision and no change in vision ENT: no bleeding gums and no change in voice, no dizziness Card: no chest pain, no shortness of breath, no orthopnea, no PND Resp: no cough, no excessive phlegm production, no SOB GI: no abdominal pain and no nausea, no vomiting : no hematuria, no urinary frequency and no difficulty voiding Musc: no abnormal gait, no bone pain Neuro: no abnormal movements, no weakness, no dizziness, no abnormal gait Psych: no behavioral changes and no change in appetite Endo: no change in body appearance, no cold intolerance, no excessive sweating and no fatigue Physical Exam Vital Signs: Last Vital Signs Pulse 76 07/06/25 11: BP 132/70 07/06/25 11: Pulse Ox 98 07/06/25 11: Oxygen Delivery Method Room Air 07/06/25 11:26 BMI result Body Mass Index 23.3 General: not in any acute distress, comfortable, sitting on the chair Nutritional Appearance: well nourished and normal weight Eyes: normal position, no icterus Neck: No lymphadenopathy, no thyromegaly Resp: bilateral air entry equal, no added sounds present Cardio: normal S1, S2 heard, no murmur heard, no edema GI: soft, nontender, no guarding, no hepatosplenomegaly : bladder normal to inspection, bladder normal to palpation, no renal angle tenderness Skin: no rashes or lesions noted and elasticity normal Neuro: oriented to person, oriented to place, oriented to time and moves all extremities Assessment & Plan Assessment & Plan (1) Hypertension: Code(s): I10 - Essential (primary) hypertension Category: Medical (2) Hypothyroidism: Code(s): E03.9 - Hypothyroidism, unspecified Category: Medical (3) Renal stone: Code(s): N20.0 - Calculus of kidney Category: Medical Plan Kidney stones: - unclear exact stone type - She had [facility]olink done on 05/08/2025 which showed 3.5 L urine volume, high uric acid content in the urine, high urine sodium, pH 6.7, low citrate in urine and low calcium oxalate super saturations. - She had CT abdomen and pelvis done in 04/2025 which showed bilateral multiple kidney stones with largest on the right measuring 5.5 mm similar finding were noted on ultrasound in November 2024 - will get serum calcium PTH Vitamin-D level and uric acid levels - advised the patient for fluid intake at least 3 L per day, more so in summer - low-sodium diet, increased dairy products with the meals, increased ute and citrous intake (without added sugar) - decrease animal protein, avoid sugar sweetened sodas, fruit punch, grapefruit and large volume cranberry juice Hypertension: - on losartan and hydrochlorothiazide - as her blood pressures are on the higher side we will increase the hydrochlorothiazide to 25 mg daily as it has benefits on renal stone reduction This note is constructed using voice recognition software. While every effort has been made to ensure accuracy moid [employer] teacher errors may have been included. Orders: Orders Parathyroid Hormone Intact 2 Days E03.9 - Hypothyroidism, unspecified, I10 - Essential (primary) hypertension, N20.0 - Calculus of kidney Vitamin D 25-OH Total 2 Days E03.9 - Hypothyroidism, unspecified, I10 - Essential (primary) hypertension, N20.0 - Calculus of kidney Basic Metabolic Panel 2 Days E03.9 - Hypothyroidism, unspecified, I10 - Essential (primary) hypertension, N20.0 - Calculus of kidney Microalbumin, Random (w Creat) 2 Days E03.9 - Hypothyroidism, unspecified, I10 - Essential (primary) hypertension, N20.0 - Calculus of kidney Phosphorus 2 Days E03.9 - Hypothyroidism, unspecified, I10 - Essential (primary) hypertension, N20.0 - Calculus of kidney UA and rflx microscopic 2 Days E03.9 - Hypothyroidism, unspecified, I10 - Essential (primary) hypertension, N20.0 - Calculus of kidney Uric Acid 2 Days E03.9 - Hypothyroidism, unspecified, I10 - Essential (primary) hypertension, N20.0 - Calculus of kidney Coding Level of Care Code New Pt Level 4 (46270) Diagnoses Hypertension I10 Hypothyroidism E03.9 Renal stone N20.0
[2025-07-06 11:26] VITALS: BP 132/70; PULSE 76; O2SAT 98; BMI 23.3
== END 2025-07-06 11:54 | disposition home or self-care (01) ==
LOC: HO.HKA 11:10
PROVIDERS: PCP Internal Medicine; Referring Provider Urology; Visit Provider Internal Medicine Critical Care Medicine
DX: I10 Essential (primary) hypertension (principal); E03.9 Hypothyroidism, unspecified; N20.0 Calculus of kidney
CPT/HCPCS: 99204

== ENCOUNTER 2025-07-23 10:01 | Outpatient (REF) | payer OTHER, MEDICARE, SELFPAY ==
--- OUTSIDE RECORDS SUMMARY | 2025-07-23 11:03 | XMS_ITS | Encounter Summary ---
Author Organization [facility] Address [address] [place] [address] Phone Care Team Providers Care Life Insurance Agent Name Role Phone Raul Medina MD Primary Care Provider [phone] Pcp, Unknown Unavailable Unavailable Raul Medina MD Unavailable [phone] Maninder Warren MD Unavailable [phone] Encounter Details Date Type Department Care Team (Late st Contact Info) Description 12/14/2023 Transcribe Orders Virtual Department [address] [place] [address] Raul Medina MD [address] [place] [address] [place] [address] Breast screening (Primary Dx) Social History Tobacco Use Types Packs/Day Years Used Date Smoking Tobacco: Never Smokeless Tobacco: Never Alcohol Use Standard Drinks/Week Comments Yes 4 (1 standard drink = 0.6 oz pur [...] PM EST Sexual Orientation Not on file documented as of this encounter Plan of Treatment Upcoming Encounters Date Type Department Care Team (Late st Contact Info) Description 05/08/2025 Procedure Pass [address] [address] 12/07/2025 9:15 AM EST Appointment [address] [address] Raul Medina MD [address] [place] [address] [place] [address] documented as of this encounter Results * BI MAMMOGRAM SCREENING WITH TOMOSYNTHESIS WITH CAD (BILATERAL) (02/18/2024 3:48 PM EDT) Anatomical Region Laterality Modality Breast Left, Breast Right, Breast Bilateral Bila teral Mammography 02/23/2024 9:15 AM EDT Impressions 02/23/2024 9:16 AM EDT No mammographic evidence of malignancy in either breast. Annual screening mammography is recommended. BI-RADS 1 NEGATIVE The patient will be notified of the results and recommendations. Narrative 02/23/2024 9:16 AM EDT BI MAMMOGRAM SCREENING WITH TOMOSYNTHESIS WITH CAD (BILATERAL) Additional patient information: Screening. COMPARISON: Comparison is made with relevant prior imaging. Breast composition: There are scattered areas of fibroglandular density. FINDINGS: No abnormal masses, suspicious calcifications, or other significant findings are identified mammographically in either breast. Procedure Note Thea Kate MD - 02/23/2024 BI MAMMOGRAM SCREENING WITH TOMOSYNTHESIS WITH CAD (BILATERAL) Additional patient information: Screening. COMPARISON: Comparison is made with relevant prior imaging. Breast composition: There are scattered areas of fibroglandular density. FINDINGS: No abnormal masses, suspicious calcifications, or other significantfindings are identified mammographically in either breast. IMPRESSION: No mammographic evidence of malignancy in either breast. Annual screening mammography is recommended. BI-RADS 1 NEGATIVE The patient will be notified of the results and recommendations. Raul Medina MD IMG MG EXAMS Final Result documented in this encounter Visit Diagnoses Diagnosis Breast screening- Primary Breast screening, unspecified Breast screening Breast screening, unspecified documented in this encounter Care Teams Life Insurance Agent Relationship Specialty Start Date End Date Raul Medina MD [address] [place] [address] Dr Mason [address] [place] [id number] PCP - General Internal Medicine 10/25/17 Pcp, Unknown 09/18/17 Raul Medina MD [address] [place] [address] Dr Mason [address] [place] [address] Historical LMR Provider 09/13/17 Maninder Warren MD [address] [place] [address] Historical LMR Provider 09/13/17 documented as of this encounter Additional Source Comments The information contained in this document represents components of the legal health record. It is not the complete legal health record.[facility]
[2025-07-23 11:07] LABS: MANUAL DIFF FLAG NO
[2025-07-23 11:30] LABS: Hematocrit 37.2 % (37.0-47.0); Hemoglobin 12.5 g/dl (12.0-16.0); Imm Gran Abs Auto 0.01 X10*3/uL (0.00-0.03); Imm Gran Pct Auto 0.2 % (0.0-0.4); Lymphocytes Absolute Auto 1.3 X10*3/uL (1.2-4.9); Mean Corpuscular HGB Conc 33.6 g/dl (31.0-35.0); Mean Corpuscular Hemoglobin 32.1 pg (27.0-33.0); Mean Corpuscular Volume 95.4 fL (80.0-98.0); NRBC Abs Auto 0.000 X10*3/uL (0.0-0.012); NRBC Pct Auto 0.0 /100WBC (0.0-0.2); Platelet Count 246 X10*3/uL (160-400); Red Blood Count 3.90 X10*6/uL (4.20-5.50); White Blood Count 4.3 X10*3/uL (4.8-10.8)
[2025-07-23 11:59] LABS: Parathyroid Hormone Intact 68.5 pg/mL (8.7-77.1)
[2025-07-23 14:27] LABS: Appearance Urine Clear; Glucose Urine UA Negative (Negative); PH 8.5 (5.0-9.0); Specific Gravity - Urine 1.015 (1.005-1.025); UMIC TRIGGER UA YES
[2025-07-23 14:45] LABS: Alanine Aminotransferase 28 U/L (0-31); Albumin Level 4.2 g/dL (3.5-5.0); Alkaline Phosphatase 54 U/L (39-117); Aspartate Amino Transferase 36 U/L (5-31); Blood Urea Nitrogen 16 mg/dL (9-16); Estimated Glomerular Filt Rate > 60; Total Protein 6.7 g/dL (6.5-8.0)
[2025-07-23 14:46] LABS: Anion Gap 13 (12-20); Blood Urea Nitrogen 16 mg/dL (9-16); Calcium 9.2 mg/dL (8.4-10.2); Carbon Dioxide 27 mmol/L (22-29); Chloride 103 mmol/L (96-108); Estimated Glomerular Filt Rate > 60; Potassium 4.2 mmol/L (3.3-5.1); Sodium 139 mmol/L (135-145); Uric Acid 5.8 mg/dL (2.4-5.7)
[2025-07-23 14:53] LABS: Carcinoembryonic Antigen 2.60 ng/mL
== END 2025-07-23 10:02 | disposition home or self-care (01) ==
LOC: HO.WFDLDS 10:01
PROVIDERS: Internal Medicine; Visit Provider Internal Medicine Critical Care Medicine
DX: N20.0 Calculus of kidney (principal); E03.9 Hypothyroidism, unspecified; I10 Essential (primary) hypertension; Z13.21 Encounter for screening for nutritional disorder
CPT/HCPCS: 36415; 80048; 80076; 81001; 82105; 82306; 82378; 82565; 82570; 83970; 84100; 84520; 84550; 85025

== ENCOUNTER 2025-08-06 08:20 | Outpatient (AMB) | payer MEDICARE, OTHER, SELFPAY ==
--- OUTSIDE RECORDS SUMMARY | 2024-09-07 17:10 | XMS_ITS | Encounter Summary ---
Author Organization [facility] Address [address] [place] [address] Phone Care Team Providers Care Hl7 Developer Name Role Phone Raul Medina MD Primary Care Provider [phone] Pcp, Unknown Unavailable Unavailable Raul Medina MD Unavailable [phone] Maninder Warren MD Unavailable [phone] Encounter Details Date Type Department Care Team (Late st Contact Info) Description 09/07/2024 5:10 PM EDT Hospital Encounter [facility] [address] [place] [id number] Marline Mares CNP [address] [place] [address] [email or web address] Social History Tobacco Use Types Packs/Day Years Used Date Smoking Tobacco: Never Passive Smoke Exposure: Never Smokeless Tobacco: Never Alcohol Use Standard Drinks/Week Comments Yes 3 (1 standard drink = 0.6 oz pur e alcohol) Education Answer Date Recorded Are you interested in more education? Not on yumiko e 03/26/2023 Are you concerned about learning? Not on file 03/26/2023 No 03/26/2023 No 03/26/2023 Digital Access Answer Date Recorded No 04/24/2023 No 04/24/2023 Reliable internet access at home? Not on file 04/24/2023 Device with a working camera? 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 Not on file Not on file Not on file documented as of this encounter Plan of Treatment Upcoming Encounters Date Type Department Care Team (Late st Contact Info) Description 05/08/2025 Procedure Pass [address] [address] 12/07/2025 9:15 AM EST Appointment [address] [address] Raul Medina MD [address] [place] [address] [place] [address] documented as of this encounter Procedures Procedure Name Priority Date/Time Associated Diagnosis Comments XR HIP 2 VW RIGHT PLUS PELVIS Routine 09/07/2024 5:27 PM EDT Acute right hip pain documented in this encounter Results * XR HIP 2 VW RIGHT PLUS PELVIS (09/07/2024 5:27 PM EDT) Anatomical Region Laterality Modality Hip, Pelvis Computed Radiogr aphy 09/07/2024 5:56 PM EDT Impressions 09/07/2024 6:04 PM EDT Anticipated surgical changes of right hip arthroplasty. Previous left hip arthroplasty. No acute osseous abnormality. Narrative 09/07/2024 6:04 PM EDT XR HIP 2 VW RIGHT PLUS PELVIS Referring clinician's provided indication for this examination in Epic: Pain; S/P Joint Replacement; Posterior hip replacement 2019, going up to stairs yesterday when felt a sudden pop and has sharp pain posterior iliac crest COMPARISON: None FINDINGS: Pelvis: Bilateral total hip arthroplasties are in place. Femoral and acetabular components are well aligned for situation. Degenerative changes of the spine are present. Right hip: Surgical changes of right hip arthroplasty. No acute fracture or dislocation. Procedure Note Miriam Pickens MD, PhD - 09/07/2024 XR HIP 2 VW RIGHT PLUS PELVIS Referring clinician's provided indication for this examination in Epic:Pain; S/P Joint Replacement; Posterior hip replacement 2019, going up tostairs yesterday when felt a sudden pop and has sharp pain posterior iliaccrest COMPARISON: None FINDINGS: Pelvis: Bilateral total hip arthroplasties are in place. Femoral andacetabular components are well aligned for situation. Degenerative changesof the spine are present. Right hip: Surgical changes of right hip arthroplasty. No acute fractureor dislocation. IMPRESSION: Anticipated surgical changes of right hip arthroplasty. Previous left hiparthroplasty. No acute osseous abnormality. Marline Mares MATERIAL PROCESSOR IMG XR PELVIS Final Resul t documented in this encounter Visit Diagnoses Not on filedocumented in this encounter Care Teams Hl7 Developer Relationship Specialty Start Date End Date Raul Medina MD [address] [place] [address] Dr Mason [address] [place] [phone] PCP - General Internal Medicine 10/25/17 Pcp, Unknown 09/18/17 Raul Medina MD [address] [place] [address] Dr Mason [address] [place] [phone] Historical LMR Provider 09/13/17 Maninder Warren MD [address] [place] [phone] Historical LMR Provider 09/13/17 documented as of this encounter Additional Source Comments The information contained in this document represents components of the legal health record. It is not the complete legal health record.[facility]
--- NOTE | 2025-08-06 08:22 | A.OFFPC_ITS ---
Vital Signs 08/06/25 08:23 Height 5 ft 6 in Weight 139 lb 6 oz BMI 22.5 BP 120/64 Blood Pressure Location Lt brachial Position Sitting Pulse 66 Pulse Source Pulse Oximeter Temp 97.1 F Temp Source Temporal Artery Scan Pulse Oximetry (%) 97 Oxygen Delivery Method Room Air Intake Visit Reasons: ADOLFO DR Medina Intake Note: Patient is here today for ADOLFO from Dr Medina Staff Psychologist Required: No Printed Circuit Board Panels Trimmer: Not Required per policy Accompanied by: Self / Same As Patient Allergies No Known Allergies Allergy (Verified 08/06/25 08:23) Medication List - Last Reconciled 08/06/25 by Monserrat Aguilar PA-C aspirin 81 mg PO DAILY clobetasol 0.05% grams topical 2XW ezetimibe 10 mg PO DAILY hydrochlorothiazide 25 mg PO DAILY hydroxyzine HCl 10 mg PO TID PRN levothyroxine 137 mcg PO DAILY losartan 25 mg PO DAILY Tobacco use date assessed: 08/06/25 Fall risk assessment: No Falls in past year Last assessed Fall Risk: 08/06/25 Dental Screening Dental Screen Date: 08/06/25 Did you have a dental visit in the last 12 months?: Yes Did you have a dental problem in the last 6 months where you did not have access to dental care?: No Was dental information given to patient?: Patient has dentist HPI ADOLFO DR Medina HPI Details 64-year-old female with past medical his tory of hypertension, hypothyroidism, kidney stones last seen 09/[address] Medina coming in for transfer of care. In review of the notes, patient was seen by Nephrology 06/2025 s/p Litholink 05/08/2025 ordered for blood work to look for etiology of stones and increase fluid intake. Hydrochlorothiazide was increased to 25 mg for kidney stone reduction and blood pressure control. Seen by urology 04/2025 referred to GI for incidental liver lesion and plan for repeat ultrasound in 9 months to monitor kidney stones. Presenting for management of nephrolithiasis and preventative care. The patient was referred to a provisioning specialist and urologist after an incidental finding of kidney stones during an ultrasound for abdominal pain. The provisioning specialist increased her hydrochlorothiazide dosage to help manage the kidney stones, which are small and numerous. The patient has not had her cholesterol checked in a year and is due for testing. The patient is due for a thyroid function test as part of her routine monitoring. The patient reports consuming one alcoholic drink daily and expresses a desire to stop due to concerns about aging and potential falls. She acknowledges that her alcohol consumption may be related to anxiety and stress, and is open to trying hydroxyzine and counseling for management. The patient had a carotid endarterectomy a year ago and is scheduled for follow-up imaging in August. 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 Long [facility] Medical History Acute respiratory disease Hypothyroidism Hypertension Surgical History History of right-sided carotid endarterectomy History of parathyroidectomy History of wisdom tooth extraction History of tubal ligation Family History Father Pernicious anemia Hypertension Hyperthyroidism Myocardial infarction Diabetes Mother Hyperthyroidism Acute CVA (cerebrovascular accident) Valvular heart disease Paternal Grandmother Pernicious anemia Brother Hyperthyroidism Hypertension Social History Housing: House Alcohol intake: current Alcohol intake frequency: a few times a week Patient Tobacco Use Status: Never used Tobacco e-Cigarette/Vaping Use: Never Used Second Hand Smoke Exposure: No service: No Current occupational status: employed Cognitive needs: No Hearing needs: No Vision needs: Yes (glasses) Questionnaire PHQ-9 Over the last 2 weeks, how often have you been bothered by any of the following problems? 1. Little interest or pleasure in doing things: not at all 2. Feeling down, depressed, or hopeless: not at all 3. Trouble falling or staying asleep, or sleeping too much: several days 4. Feeling tired or having little energy: not at all 5. Poor appetite or overeating: not at all 6. Feeling bad about yourself - or that you are a failure or have let yourself or your family down: not at all 7. Trouble concentrating on things, such as reading the newspaper or watching television: not at all 8. Moving or speaking so slowly that other people could have noticed. Or the opposite - being so fidgety or restless that you have been moving around a lot more than usual: not at all 9. Thoughts that you would be better off or of hurting yourself in some wa y: not at all Total score: 1 Depression Screening Interpretation: Negative Depression Screening Done: Yes Source: Developed by Drs. Hayder Arias, Melany Feng, Ciaran Boone and colleagues, with an educational cain from [employer]. Thrive Questionnaire Date Thrive assessed: 08/06/25 I am a: Patient What is your living situation today?: I have a steady place to live Within the past 12 months, did the food you bought not last and you didn't have the money to get more?: Never true Within the past 12 months, did you worry whether your food would run out before you got money to buy more?: Never true Do you have trouble paying for medicines?: No Do you have trouble getting transportation to medical appointments?: No Do you have trouble paying your heating and electricity bill?: No Do you have trouble taking care of your child, family member or friend?: No Do you have trouble with day-to-day activities such as bathing, preparing meals, shopping, managing finances, etc.?: No Are you currently unemployed and looking for a job?: No Are you interested in more education?: I choose not to answer this question Please select the resources that you would like help with: None Currently or been in a relationship where the following occur: No concerns reported THRIVE Score: 0 AUDIT C Alcohol Use Questionnaire (AUDIT-C) 1. How often do you have a drink containing alcohol?: 4 or more times a week 2. How many drinks containing alcohol do you have on a typical day when you are drinking?: 1 or 2 3. How often do you have six or more drinks on one occasion?: Never Total Score: 4 HIREN-7 AMB Questionnaire HIREN-7 Date HIREN - 7 assessed: 08/06/25 Feeling nervous, anxious, or on edge: 1 = Several days Not being able to stop or control worryin = Not at all Worrying too much about different things: 0 = Not at all Trouble relaxin = Not at all Being so restless that it is hard to sit still: 0 = Not at all Becoming easily annoyed or irritable: 0 = Not at all Feeling afraid as if something awful might happen: 0 = Not at all Total HIREN-7 score (0-4 normal; 5-9 mild; 10-14 moderate; 15-21 severe): 1 Source: Developed by Drs. Hayder Arias, Melany Feng, Ciaran Boone and colleagues, with an educational cain from [employer]. Review of Systems Const Denies body aches, Denies fatigue, Denies fever(s), Denies frequent falls, Denies headache(s) and Denies weakness Eyes Reports no additional complaints and Denies change in vision ENT Denies dizziness, Denies facial pain, Denies headache(s) and Denies nasal congestion Card Denies chest pain, Denies syncope, Denies irregular heart rhythm, Denies leg edema, Denies lightheadedness and Denies dyspnea Resp Denies cough and Denies dyspnea GI Denies abdominal pain, Denies dyspepsia, Denies nausea and Denies vomiting Denies urinary frequency and Denies urinary urgency Musc Denies back pain and Denies myalgias Skin/Breast Reports system reviewed and no additional complaints, except as documented Neuro Denies dizziness, Denies syncope, Denies frequent falls, Denies headache(s) and Denies weakness Psych Reports no additional complaints Endo Denies fatigue Physical exam (Primary Care) Vital Signs: Last Vital Signs Temp 97.1 F 08/06/25 08:23 Pulse 66 08/06/25 08:23 BP 120/64 08/06/25 08:23 Pulse Ox 97 08/06/25 08:23 Oxygen Delivery Method Room Air 08/06/25 08:23 BMI result Body Mass Index 22.5 Tobacco/Smoking Status: Tobacco use Status Tobacco use date assessed 08/06/25 08/06/25 08:29 Patient Tobacco Use Status Never used Tobacco 08/06/25 08:29 e-Cigarette/Vaping Use Never Used 08/06/25 08:29 PHQ-9: PHQ-9 Score PHQ-9: Total score 1 08/06/25 08:49 Depression Screening Interpretation: Negative Thrive Assessment: Date of Thrive Assessment Date Thrive assessed 08/06/25 08/06/25 08:29 Currently or been in a relationship where the following occur: No concerns reported Const General: cooperative, healthy appearing, comfortable and no acute distress Orientation/consciousness: patient oriented x3 HENMT Head: Yes normocephalic Ears: hearing grossly normal bilaterally Eyes General: appearance normal, both eyes and all related structures Neck Neck: Yes full ROM Resp Effort & Inspection: normal respiratory effort Auscultation: clear to auscultation bilaterally, no crackles, no rales, no rhonchi and no wheezes Cardio Rate: regular rate Rhythm: regular rhythm Skin General skin exam: no rashes or lesions noted Neuro General: patient oriented x3 Gait exam (Neuro): Normal gait present Extrem General: Yes normal to inspection, Yes full ROM and No edema Psych Affect: normal affect Attitude: cooperative Insight: Good insight present (Psych) Judgement: Good judgement present (Psych) Coding Level of Care Code Est Pt Level 3 (67506) Diagnoses Primary hypertension I10 Hypertension type: primary hypertension Acquired hypothyroidism E03.9 Hypothyroidism type: acquired Liver lesion K76.9 Bilateral kidney stones N20.0 Alcohol use F10.90 Carotid artery disease I77.9 Assessment & Plan Assessment & Plan (1) Hypertension: Code(s): I10 - Essential (primary) hypertension Category: Medical Qualifiers: Hypertension type: primary hypertension Qualified Code(s): I10 - Essential (primary) hypertension Plan: Continue on current blood pressure medication. Avoid salt intake and encourage healthy diet and regular exercise. (2) Hypothyroidism: Code(s): E03.9 - Hypothyroidism, unspecified Category: Medical Qualifiers: Hypothyroidism type: acquired Qualified Code(s): E03.9 - Hypothyroidism, unspecified Plan: Thyroid function tests are scheduled to monitor the patient's thyroid disorder as part of routine care. (3) Liver lesion: Code(s): K76.9 - Liver disease, unspecified Category: Medical Plan: Scheduled for MRI later today for liver lesion and continue to follow with GI. (4) Bilateral kidney stones: Code(s): N20.0 - Calculus of kidney Category: Medical Plan: The patient is currently under the care of a provisioning specialist and urologist for management of nephrolithiasis, with an increased dosage of hydrochlorothiazide to facilitate stone passage and prevent formation. (5) Alcohol use: Code(s): F10.90 - Alcohol use, unspecified, uncomplicated Category: Social Hx Plan: Potentially related to anxiety, plan to attempt to treat anxiety and referral to counseling as well. The patient expresses a desire to reduce alcohol consumption and will explore counseling and medication options to support this goal. (6) Carotid artery disease: Comment: S/p right carotid endarterectomy Code(s): I77.9 - Disorder of arteries and arterioles, unspecified Category: Medical Plan: Follow-up imaging is scheduled in August to monitor the patient's carotid artery disease post-endarterectomy. Plan During the visit, we discussed the management of nephrolithiasis with increased hydrochlorothiazide dosage and the need for routine cholesterol and thyroid testing. We also addressed the patient's alcohol use and anxiety, exploring options such as hydroxyzine and counseling. Follow-up imaging for carotid artery disease is scheduled for August. Preventative care measures, including bone density screening and mammogram, were also discussed. This note was constructed using voice recognition software. While every effort has been made to ensure accuracy and diesel powerplant mechanic helper, still areas may have been included sometimes these areas may affect the content or meeting of the given symptoms. Total time spent caring for the patient today was 20 minutes. This includes time spent before the visit reviewing the chart, time spent during the visit, and time spent after the visit and documentation. Patient was informed and verbally consented to the use of an ambient scribe for clinic note documentation during this visit. Orders: Orders Vitamin B12 and Folate Today Z13.21 - Encounter for screening for nutritional disorder Liver Panel Today K76.9 - Liver disease, unspecified, R79.89 - Other specified abnormal findings of blood chemistry MM tomosynthesis screening BI Today Z12.31 - Encounter for screening mammogram for malignant neoplasm of breast Hemoglobin A1c Today Z13.1 - Encounter for screening for diabetes mellitus Lipid Panel Today Z13.220 - Encounter for screening for lipoid disorders TSH reflex Free T4 Today E03.9 - Hypothyroidism, unspecified, Z13.29 - Encounter for screening for other suspected endocrine disorder Free T4 (Free Thyroxine) Today E03.9 - Hypothyroidism, unspecified, Z00.00 - Encounter for general adult medical examination without abnormal findings Vitamin D 25-OH Total Today Z13.21 - Encounter for screening for nutritional disorder XR DEXA axial skeleton Today Z78.0 - Asymptomatic menopausal state Referrals Counseling Referral F10.90 - Alcohol use, unspecified, uncomplicated, F41.9 - Anxiety disorder, unspecified Medications: New hydroxyzine HCl 10 mg PO TID PRN 30 tabs 0RF anxiety
[2025-08-06 08:23] VITALS: BP 120/64; PULSE 66; TEMP 36.2; O2SAT 97; BMI 22.5
--- OUTSIDE RECORDS SUMMARY | 2025-08-06 09:15 | XMS_ITS | Encounter Summary ---
Author Organization [facility] Address [address] [place] [address] Phone Care Team Providers Care Pharmaceutical Analyst Name Role Phone Raul Medina MD Primary Care Provider [phone] Pcp, Unknown Unavailable Unavailable Raul Medina MD Unavailable [phone] Maninder Warren MD Unavailable [phone] Encounter Details Date Type Department Care Team (Late Contact Info) Description 11/12/2021 Transcribe Orders Virtual Department [address] [place] [address] Raul Medina MD [address] [place] [address] [place] [address] Social History Tobacco Use Types Packs/Day Years Used Date Smoking Tobacco: Never Smokeless Tobacco: Never Alcohol Use Standard Drinks/Week Comments Yes 2 (1 standard drink = 0.6 oz pur e alcohol) Comments No Sex and Gender Information Value Date Recorded Sex Assigned at Female 02/03/2020 7:38 PM EST Legal Sex Female 9:49 PM EDT Gender Identity Female 02/03/2020 7:38 PM EST Sexual Orientation Not on file documented as of this encounter Plan of Treatment Upcoming Encounters Date Type Department Care Team (Late Contact Info) Description 05/08/2025 Procedure Pass [address] [address] 12/07/2025 9:15 AM EST Appointment [address] [address] Raul Medina MD [address] [place] [address] [place] [address] documented as of this encounter Visit Diagnoses Not on filedocumented in this encounter Care Teams Pharmaceutical Analyst Relationship Specialty Start Date End Date Raul Medina MD [address] [place] [address] [place] [address] PCP - General Internal Medicine 10/25/17 Pcp, Unknown 09/18/17 Raul Medina MD [address] [place] [address] [place] [address] Historical LMR Provider 09/13/17 Maninder Warren MD [address] [place] [address] Historical LMR Provider 09/13/17 documented as of this encounter Additional Source Comments The information contained in this document represents components of the legal health record. It is not the complete legal health record.[facility]
--- OUTSIDE RECORDS SUMMARY | 2025-08-06 09:15 | XMS_ITS | Encounter Summary ---
Author Organization [facility] Address [address] [place] [phone] Phone Care Team Providers Care Punch Press Operator Name Role Phone Raul Medina MD Primary Care Provider [phone] Pcp, Unknown Unavailable Unavailable Raul Medina MD Unavailable [phone] Maninder Warren MD Unavailable [phone] Encounter Details Date Type Department Care Team (Late Contact Info) Description 09/25/2019 Ancillary Orders Virtual Department [address] [place] [address] Raul Medina MD [address] [place] [address] [place] [address] Breast screening Social History Tobacco Use Types Packs/Day Years Used Date Smoking Tobacco: Never Smokeless Tobacco: Never Alcohol Use Standard Drinks/Week Comments Yes 0 (1 standard drink = 0.6 oz pur [...] (Late Contact Info) Description 05/08/2025 Procedure Pass [address] [address] 12/07/2025 9:15 AM EST Appointment [address] [address] Raul Medina MD [address] [place] [address] Dr Baez [place], [place]I [address] documented as of this encounter Results * BI MAMMOGRAM SCREENING WITH TOMOSYNTHESIS WITH CAD (BILATERAL) (11/15/2019 1:19 PM EST) Anatomical Region Laterality Modality Breast Left, Breast Right, Breast Bilateral Bila teral Mammography 11/15/2019 1:57 PM EST Impressions 11/15/2019 1:59 PM EST No mammographic evidence of malignancy. BI-RADS CATEGORY: 2 - Benign finding. DENSITY: The breast tissue is almost entirely fat. POS - [id number] Narrative 11/15/2019 1:59 PM EST Standard digital full-field 2-D C view and two-plane tomographic imaging was performed and compared with multiple prior studies, most recently 11/14/2018, with utilization of computer-aided detection. The breasts are almost entirely fatty. The stromal markings are essentially unchanged in overall appearance and distribution. No dominant spiculated mass, suspicious clustered microcalcifications, or focal zone of pathologic skin thickening or retraction are noted to have arisen in the interim. Small chronic benign- appearing nodular densities in the lateral tissues of both breasts are stable. Procedure Note Astrid Waller MD - 11/15/2019 Standard digital full-field 2-D C view and two-plane tomographic imagingwas performed and compared with multiple prior studies, most [id number]/17/2018, with utilization of computer-aided detection. The breasts are almost entirely fatty. The stromal markings areessentially unchanged in overall appearance and distribution. No dominantspiculated mass, suspicious clustered microcalcifications, or focal zoneof pathologic skin thickening or retraction are noted to have arisen inthe interim. Small chronic benign- appearing nodular densities in thelateral tissues of both breasts are stable. IMPRESSION: No mammographic evidence of malignancy. BI-RADS CATEGORY: 2 - Benign finding. DENSITY: The breast tissue is almost entirely fat. POS - [id number] us Raul Medina MD IMG MG EXAMS Final Result documented in this encounter Visit Diagnoses Diagnosis Breast screening Breast screening, unspecified Breast screening Breast screening, unspecified documented in this encounter Care Teams Punch Press Operator Relationship Specialty Start Date End Date Raul Medina MD [address] [place] [address] [place] [address] PCP - General Internal Medicine 10/25/17 Pcp, Unknown 09/18/17 Raul Medina MD [address] [place] [address] [place] [address] Historical LMR Provider 09/13/17 Maninder Warren MD [address] [place] [address] Historical LMR Provider 09/13/17 documented as of this encounter Additional Source Comments The information contained in this document represents components of the legal health record. It is not the complete legal health record.[facility]
--- OUTSIDE RECORDS SUMMARY | 2025-08-06 09:15 | XMS_ITS | Encounter Summary ---
Author Organization [facility] Address [address] [place] [address] Phone Care Team Providers Care Insurance Special Agent Name Role Phone Raul Medina MD Primary Care Provider [phone] Pcp, Unknown Unavailable Unavailable Raul Medina MD Unavailable [phone] Maninder Warren MD Unavailable [phone] Encounter Details Date Type Department Care Team (Late Contact Info) Description 10/18/2018 Ancillary Orders Virtual Department [address] [place] [address] Raul Medina MD [address] [place] [address] [place] [address] Breast screening Social History Tobacco Use Types Packs/Day Years Used Date Smoking Tobacco: Never Smokeless Tobacco: Never Alcohol Use Standard Drinks/Week Comments No 0 (1 standard drink = 0.6 oz [...] (Late Contact Info) Description 05/08/2025 Procedure Pass [address] [address] 12/07/2025 9:15 AM EST Appointment [address] [address] Raul Medina MD [address] [place] [address] Dr Baez TONI Vieyra [address] documented as of this encounter Results * BI MAMMOGRAM SCREENING WITH TOMOSYNTHESIS WITH CAD (BILATERAL) (11/14/2018 2:56 PM EST) Anatomical Region Laterality Modality Breast Left, Breast Right, Breast Bilateral Bila teral Mammography 11/14/2018 3:17 PM EST Impressions 11/14/2018 3:21 PM EST No mammographic evidence of malignancy. Recommend annual surveillance. BI-RADS CATEGORY: 2 - Benign finding. DENSITY: The breast tissue is almost entirely fat. POS - CDHMAMA Narrative 11/14/2018 3:21 PM EST 58-year-old female with no current breast symptoms. Comparison made to previous on 10/25/2017 and as far back as 08/25/2005. Interpretation made in conjunction with computer-aided detection and tomosynthesis. The breasts are almost entirely fatty. Stable chronic mild bilateral nodularity likely due to lymph nodes. There are no suspicious masses, areas of architectural distortion, or suspicious clusters of microcalcifications. Procedure Note Alma Salguero MD - 11/14/2018 58-year-old female with no current breast symptoms. Comparison made toprevious on 10/25/2017 and as far back as 08/25/2005. Interpretation madein conjunction with computer-aided detection and tomosynthesis. The breasts are almost entirely fatty. Stable chronic mild bilateralnodularity likely due to lymph nodes. There are no suspicious masses, areas of architectural distortion, orsuspicious clusters of microcalcifications. IMPRESSION: No mammographic evidence of malignancy. Recommend annual surveillance. BI-RADS CATEGORY: 2 - Benign finding. DENSITY: The breast tissue is almost entirely fat. POS - CDHMAMA Raul Medina MD IMG MG EXAMS Final Result documented in this encounter Visit Diagnoses Diagnosis Breast screening Breast screening, unspecified Breast screening Breast screening, unspecified documented in this encounter Care Teams Insurance Special Agent Relationship Specialty Start Date End Date Raul Medina MD [address] [place] [address] Dr [address] [place] [address] PCP - General Internal Medicine 10/25/17 Pcp, Unknown 09/18/17 Raul Medina MD [address] [place] [address] Dr Mason [address] [place] [address] Historical LMR Provider 09/13/17 Maninder Warren MD [address] [place] [address] Historical LMR Provider 09/13/17 documented as of this encounter Additional Source Comments The information contained in this document represents components of the legal health record. It is not the complete legal health record.[facility]
--- OUTSIDE RECORDS SUMMARY | 2025-08-06 09:15 | XMS_ITS | Encounter Summary ---
Author Organization [facility] Address [address] [place] [address] Phone Care Team Providers Care Exploration Manager Name Role Phone Raul Medina MD Primary Care Provider [phone] Pcp, Unknown Unavailable Unavailable Raul Medina MD Unavailable [phone] Maninder Warren MD Unavailable [phone] Encounter Details Date Type Department Care Team (Late st Contact Info) Description 11/12/2021 Procedure Pass [address] [address] Social History Tobacco Use Types Packs/Day Years [...] st Contact Info) Description 05/08/2025 Procedure Pass [address] [address] 12/07/2025 9:15 AM EST Appointment [address] [address] Raul Medina MD [address] [place] [address] [place] [address] documented as of this encounter Visit Diagnoses Not on filedocumented in this encounter Care Teams Exploration Manager Relationship Specialty Start Date End Date Raul Medina MD [address] [place] [address] [place] [address] PCP - General Internal Medicine 10/25/17 Pcp, Unknown 09/18/17 Raul Medina MD [address] [place] [address] [place] [address] Historical LMR Provider 09/13/17 Maninder [place] MD [address] [place] [address] Historical LMR Provider 09/13/17 documented as of this encounter Additional Source Comments The information contained in this document represents components of the legal health record. It is not the complete legal health record.[facility]
--- OUTSIDE RECORDS SUMMARY | 2025-08-06 09:15 | XMS_ITS | Encounter Summary ---
Author Organization [facility] Address [address] [place] [address] Phone Care Team Providers Care Correspondence Specialist Name Role Phone Pcp, Unknown Primary Care Provider Unavailabl e Raul Medina MD Primary Care Provider [phone] Pcp, Unknown Unavailable Unavailable Raul Medina MD Unavailable [phone] Maninder Warren MD Unavailable [phone] Encounter Details Date Type Department Care Team (Late st Contact Info) Description 09/18/2017 Ancillary Orders [facility] [address] [place] [address] Maninder [place] MD [address] [place] [address] Visit for screening mammogram Social History Tobacco Use Types Packs/Day Years Used Date Smoking Tobacco: Never Assessed Comments Unknown Sex and Gender Information Value Date Recorded Sex Assigned at Female 02/03/2020 7:38 PM EST Legal Sex Female 9:49 PM EDT Gender Identity Female 02/03/2020 7:38 PM EST Sexual Orientation Not on file documented as of this encounter Plan of Treatment Upcoming Encounters Date Type Department Care Team (Late st Contact Info) Description 05/08/2025 Procedure Pass [address] [address] 12/07/2025 9:15 AM EST Appointment [address] [address] Raul Medina MD [address] [place] [address] Dr Baez TONI Vieyra [address] documented as of this encounter Results * BI MAMMOGRAM SCREENING WITH TOMOSYNTHESIS WITH CAD (BILATERAL) (10/25/2017 3:34 PM EST) Anatomical Region Laterality Modality Breast Left, Breast Right, Breast Bilateral Bila teral Mammography 10/26/2017 8:24 AM EST Impressions 10/26/2017 8:25 AM EST Normal negative. Annual screening is recommended. Patient notified by letter. BI-RADS CATEGORY: 1 - Negative. DENSITY: The breast tissue is almost entirely fat. POS: [id number] Narrative 10/26/2017 8:25 AM EST Screening Mammogram, bilateral with utilization of computer aided detection and tomosynthesis as well as 2-D C view imaging. Comparison: Dating back to 2012 and the most recent prior examination dated 2015. Findings: No suspicious masses or suspicious clustered microcalcifications are present. No architectural distortion or significant asymmetry is present. Breasts are composed of almost exclusively fat. Procedure Note Harmony Troy MD - 10/26/2017 Screening Mammogram, bilateral with utilization of computer aideddetection and tomosynthesis as well as 2-D C view imaging. Comparison: Dating back to 2012 and the most recent prior examinationdated 2015. Findings: No suspicious masses or suspicious clustered microcalcificationsare present. No architectural distortion or significant asymmetry ispresent. Breasts are composed of almost exclusively fat. IMPRESSION: Normal negative. Annual screening is recommended. Patient notified by letter. BI-RADS CATEGORY: 1 - Negative. DENSITY: The breast tissue is almost entirely fat. POS: [id number] Maninder Warren MD IMG MG EXAMS Final Result documented in this encounter Visit Diagnoses Diagnosis Visit for screening mammogram Visit for screening mammogram documented in this encounter Care Teams Correspondence Specialist Relationship Specialty Start Date End Date Pcp, Unknown PCP - General 09/18/17 10/24/17 Raul Medina MD [address] [place] [address] [place] [address] PCP - General Internal Medicine 10/25/17 Pcp, Unknown 09/18/17 Raul Medina MD [address] [place] [address] Dr Mason [address] [place] [address] Historical LMR Provider 09/13/17 Maninder [place] MD [address] [place] [address] Historical LMR Provider 09/13/17 documented as of this encounter Additional Source Comments The information contained in this document represents components of the legal health record. It is not the complete legal health record.[facility]
--- OUTSIDE RECORDS SUMMARY | 2025-08-06 09:15 | XMS_ITS | Encounter Summary ---
Author Organization [facility] Address [address] [place] [address] Phone Care Team Providers Care Automation Qtp Tester Name Role Phone Raul Medina MD Primary Care Provider [phone] Pcp, Unknown Unavailable Unavailable Raul Medina MD Unavailable [phone] Maninder Warren MD Unavailable [phone] Encounter Details Date Type Department Care Team (Late st Contact Info) Description 12/25/2022 Transcribe Orders Virtual Department [address] [place] [address] Raul Medina MD [address] [place] [address] [place] [address] Breast screening (Primary Dx) Social History Tobacco [...] st Contact Info) Description 05/08/2025 Procedure Pass [address] [address] 12/07/2025 9:15 AM EST Appointment [address] [address] Raul Medina MD [address] [place] [address] [place] [address] documented as of this encounter Results * BI MAMMOGRAM SCREENING WITH TOMOSYNTHESIS WITH CAD (BILATERAL) (01/20/2023 3:56 PM EST) Anatomical Region Laterality Modality Breast Left, Breast Right, Breast Bilateral Bila teral Mammography 01/21/2023 12:3 3 PM EST Impressions 01/21/2023 4:05 PM EST BILATERAL BREASTS: Benign, no evidence of malignancy. Recommend bilateral annual screening mammography in 12 months. Bi-RADS: BI-RADS CATEGORY: 2 - Benign finding. DENSITY: There are scattered fibroglandular densities. RIGHT RECOMMENDATION DUE DATE: 12 Months Recommendation: Right Mammography Screening LEFT RECOMMENDATION DUE DATE: 12 Months Recommendation: Left Mammography Screening Narrative 01/21/2023 4:05 PM EST STUDY: Bilateral screening mammography with tomosynthesis and CAD TECHNIQUE: Bilateral full-field digital screening mammography is obtained and read in conjunction with computer-aided detection. Tomosynthesis as well as 2-D C view imaging were obtained. COMPARISON: Comparison made to multiple prior studies dating back to August 2016. BILATERAL BREASTS: No new masses, suspicious calcifications or other abnormalities are seen. No significant interval change. Procedure Note Zee Hancock MD - 01/21/2023 STUDY: Bilateral screening mammography with tomosynthesis and CAD TECHNIQUE: Bilateral full-field digital screening mammography is obtainedand read in conjunction with computer-aided detection. Tomosynthesis aswell as 2-D C view imaging were obtained. COMPARISON: Comparison made to multiple prior studies dating back toO2015. BILATERAL BREASTS: No new masses, suspicious calcifications or otherabnormalities are seen. No significant interval change. IMPRESSION: BILATERAL BREASTS: Benign, no evidence of malignancy. Recommend bilateralannual screening mammography in 12 months. Bi-RADS: BI-RADS CATEGORY: 2 - Benign finding. DENSITY: There are scattered fibroglandular densities. RIGHT RECOMMENDATION DUE DATE: 12 Months Recommendation: Right Mammography Screening LEFT RECOMMENDATION DUE DATE: 12 Months Recommendation: Left Mammography Screening Raul Medina MD IMG MG EXAMS Final Result documented in this encounter Visit Diagnoses Diagnosis Breast screening- Primary Breast screening, unspecified Breast screening Breast screening, unspecified documented in this encounter Care Teams Automation Qtp Tester Relationship Specialty Start Date End Date Raul Medina MD [address] [place] [address] [place] [address] PCP - General Internal Medicine 10/25/17 Pcp, Unknown 09/18/17 Raul Medina MD [address] [place] [address] Dr Mason [address] [place] [address] Historical LMR Provider 09/13/17 Maninder [place] MD [address] [place] [address] Historical LMR Provider 09/13/17 documented as of this encounter Additional Source Comments The information contained in this document represents components of the legal health record. It is not the complete legal health record.[facility]
--- OUTSIDE RECORDS SUMMARY | 2025-08-06 09:15 | XMS_ITS | Encounter Summary ---
Author Organization [facility] Address [address] [place] [address] Phone Care Team Providers Care Agriculture Science Teacher Name Role Phone Raul Medina MD Primary Care Provider [phone] Pcp, Unknown Unavailable Unavailable Raul Medina MD Unavailable [phone] Maninder Warren MD Unavailable [phone] Encounter Details Date Type Department Care Team (Late st Contact Info) Description 12/14/2023 Transcribe Orders Virtual Department [address] [place] [address] Raul Medina MD [address] [place] [address] [place] [address] Breast screening (Primary Dx) Social History Tobacco [...] st Contact Info) Description 05/08/2025 Procedure Pass [address] [address] 12/07/2025 9:15 AM EST Appointment [address] [address] Raul Medina MD [address] [place] [address] [place] [address] documented as of this encounter Results * [...] unspecified documented in this encounter Care Teams Agriculture Science Teacher Relationship Specialty Start Date End Date Raul Medina MD [address] [place] [address] Dr Mason [address] [place] [address] PCP - General Internal Medicine 10/25/17 Pcp, Unknown 09/18/17 Raul Medina MD [address] [place] [address] Dr Mason [address] [place] [address] Historical LMR Provider 09/13/17 Maninder Warren MD [address] [place] [address] Historical LMR Provider 09/13/17 documented as of this encounter Additional Source Comments The information contained in this document represents components of the legal health record. It is not the complete legal health record.[facility]
--- OUTSIDE RECORDS SUMMARY | 2025-08-06 09:15 | XMS_ITS | Encounter Summary ---
Author Organization [facility] Address [address] [place] [address] Phone Care Team Providers Care Spreader Operator Name Role Phone Raul Medina MD Primary Care Provider [phone] Pcp, Unknown Unavailable Unavailable Raul Medina MD Unavailable [phone] Maninder Warren MD Unavailable [phone] Encounter Details Date Type Department Care Team (Late st Contact Info) Description 12/25/2022 Procedure Pass [address] [address] Social History Tobacco Use Types Packs/Day Years [...] Contact Info) Description 05/08/2025 Procedure Pass [address] [address] 12/07/2025 9:15 AM EST Appointment [address] [address] Raul Medina MD [address] [place] [address] [place] [address] documented as of this encounter Visit Diagnoses Not on filedocumented in this encounter Care Teams Spreader Operator Relationship Specialty Start Date End Date Raul Medina MD [address] [place] [address] [place] [address] PCP - General Internal Medicine 10/25/17 Pcp, Unknown 09/18/17 Raul Medina MD [address] [place] [address] [place] [address] Historical LMR Provider 09/13/17 Maninder Warren MD [address] [place] [address] Historical LMR Provider 09/13/17 documented as of this encounter Additional Source Comments The information contained in this document represents components of the legal health record. It is not the complete legal health record.[facility]
--- OUTSIDE RECORDS SUMMARY | 2025-08-06 09:15 | XMS_ITS | Patient Health Record ---
Author Organization [facility] Address [address] [place] [address] Care Team Providers Care Sole Sewer Hand Name Role Phone Monserrat Cartwright Primary Care Provider Hayder Diaz Unavailable [phone] Allergies No Known Allergies Results Component Value Reference Range Notes Complete Blood Count Auto Di ff Reviewed date:07/23/2025 10:59:52 PM Interpretation: Performing Lab:[facility], [address] [place] [phone] Notes/Report: White Blood Count 4.3 4.8-10.8 X10*3/uL Red Blood Count 3.90 4.20-5.50 X10*6/uL Hemoglobin 12.5 12.0-16.0 g/dl Hematocrit 37.2 37.0-47.0 % Mean Corpuscular Volume 95.4 80.0-98.0 fL Mean Corpuscular Hemoglobin 32.1 27.0-33.0 pg Mean Corpuscular HGB Conc 33.6 31.0-35.0 g/dl Red Cell Distribution Width 11.2 11.0-16.0 % Platelet Count 246 160-400 X10*3/uL Mean Platelet Volume 10.4 9.4-12.3 fL Neutrophils Percent Auto 53.0 45-73 % Imm Gran Pct Auto 0.2 0.0-0.4 % Lymphocytes Percent Auto 29.8 20-40 % Monocytes Percent Auto 13.7 2-11 % Eosinophils Percent Auto 2.6 0-4 % Basophils Percent Auto 0.7 0-2 % NRBC Pct Auto 0.0 0.0-0.2 /100WBC Neutrophils Absolute Auto 2.3 2.0-8.3 x10*3/u L Imm Gran Abs Auto 0.01 0.00-0.03 X10*3/uL Lymphocytes Absolute Auto 1.3 1.2-4.9 X10*3/u L Monocytes Absolute Auto 0.6 0.1-1.2 X10*3/uL Eosinophils Absolute Auto 0.1 0.0-0.4 X10*3/u L Basophils Absolute Auto 0.0 0.0-0.2 X10*3/uL NRBC Abs Auto 0.000 0.0-0.012 X10*3/uL Liver Panel Reviewed date:07/23/2025 10:59:29 PM Interpretation: Performing Lab:[address] [phone] Notes/Report: Bilirubin Total 0.4 0.0-1.0 mg/dL Bilirubin Direct 0.2 0.0-0.5 mg/dL Aspartate Amino Transferase 36 5-31 U/L Alanine Aminotransferase 28 0-31 U/L Total Protein 6.7 6.5-8.0 g/dL Albumin Level 4.2 3.5-5.0 g/dL Alkaline Phosphatase 54 39-117 U/L Blood Urea Nitrogen Reviewed date:07/23/2025 10:59:09 PM Interpretation: Performing Lab:[facility], [address] [place] [phone] Notes/Report: Blood Urea Nitrogen 16 9-16 mg/dL Creatinine Reviewed date:07/23/2025 10:59:01 PM Interpretation: Performing Lab:[address] [phone] Notes/Report: Creatinine 0.60 0.5-1.4 mg/dL Estimated Glomerular Filt Rate > 60 Chronic Kidney Disease: Estimated GFR < 60 mL/min/1.73m2 Severe Kidney Disease: Estimated GFR < 15 mL/min/1.73m2 Carcinoembryonic Antigen Reviewed date:07/23/2025 10:58:51 PM Interpretation: Performing Lab:[address] [phone] Notes/Report: Carcinoembryonic Antigen 2.60 CEA Reference Range: 93.4% Non-Smokers = 0.0-3.0 ng/mL 95.6% Smokers = 0.0-5.0 ng/mL CEA Methodology: Garcia Alinity i Chemiluminescent Microparticle Immunoassay (CMIA) CEA testing can have significant value in monitoring of patients with diagnosed malignancies in whom changing concentrations of CEA are observed. Values obtained with different assay methods cannot be used interchangeably. Alpha Fetoprotein Reviewed date:07/24/2025 11:53:58 AM Interpretation: Performing Lab:[facility], [address] [place] [phone] Notes/Report: Alpha Fetoprotein 3.7 Reference Range: <6.1 The use of AFP as a tumor marker in females is not recommended. This test was performed using the Rashaad [place] chemiluminescent method. Values obtained from different assay methods cannot be used interchangeably. AFP levels, regardless of value, should not be interpreted as absolute evidence of the presence or absence of disease. THIS TEST WAS PERFORMED AT: [facility] [address] [place] [phone] LJ TRINIDAD MD Reason For Referral No Information Medications Medication [...] Status Risk Notes Problem Colon cancer screening (272242890) Colon cancer screening (Z12.11) Active confirmed Problem [id number] Preprocedural examination (Z01.818) Active confirmed Problem Liver mass (164089660) Liver mass (R16.0) Active confirmed Problem Abnormal findings diagnostic imaging of liver and biliary tract (754922977) Abnormal liver ultrasound (R93.2) Active confirmed Vital Signs Temperature 95.7 degrees Fahrenheit 06/13/2025 Blood pressure diastolic 01 mm Hg 06/13/2025 Height 66 in 06/13/2025 Blood pressure systolic 001 mm Hg 06/13/2025 Weight 146.4 lbs 06/13/2025 BMI 23.63 kg/m2 06/13/2025 Procedures Procedure Date Ordered Date Performed Result Body Sit e COLONOSCOPY 06/13/2025 N/A Encounters Encounter Location Date Provider Diagnosis [facility] [address] [place] [address] 06/13/2025 Hayder Long Liver mass R16.0 ; [...] Provider Name:Hayder Long , 09/05/2025 10:40:00 AM, [address] [facility] , [place], [place], [id number], Insurance Providers Payer Name Payer Address Payer Phone Subscriber Number Group Number Insured Name Patient Relationship to Insured Coverage Start Date Coverage End Date [employer] [place] [address] [address] [place] [address] [id number] MELANY STUART Self - patient is the insured Medical (General) History Medical History History ICD Code Hypothyroidism Denies MD,DM,CVA,Lung disease,renal dise ase Neg. screening colonoscopy in 02/2012 TIA HTN Kidney stones Liver lesion of the right he patic lobe seen on CT scan without contrast in April 2025. Surgical History Surgery Date(Month/Year) right carotid endarterectomy 06/2024 tubal ligation right hip replacement 11/2018 left hip replacement 11/06/2019 parathyroidectomy
--- OUTSIDE RECORDS SUMMARY | 2025-08-06 09:15 | XMS_ITS | Encounter Summary ---
Author Organization [facility] Address [address] [place] [address] Phone Care Team Providers Care Nurse Auditor Name Role Phone Raul Medina MD Primary Care Provider [phone] Pcp, Unknown Unavailable Unavailable Raul Medina MD Unavailable [phone] Maninder Warren MD Unavailable [phone] Encounter Details Date Type Department Care Team (Late Contact Info) Description 11/26/2020 Ancillary Orders Virtual Department [address] [place] [address] Raul Medina MD [address] [place] [address] [place] [address] Breast screening Social History Tobacco Use Types [...] (Late Contact Info) Description 05/08/2025 Procedure Pass [address] [address] 12/07/2025 9:15 AM EST Appointment [address] [address] Raul Medina MD [address] [place] [address] Dr Baez TONI Vieyra [address] documented as of this encounter Results * BI MAMMOGRAM SCREENING WITH TOMOSYNTHESIS WITH CAD (BILATERAL) (01/17/2021 3:42 PM EST) Anatomical Region Laterality Modality Breast Left, Breast Right, Breast Bilateral Bila teral Mammography 01/17/2021 4:37 PM EST Impressions 01/17/2021 4:40 PM EST No mammographic signs of malignancy. Annual screening is recommended. BI-RADS CATEGORY: 2 - Benign finding. DENSITY: The breast tissue is almost entirely fat. Narrative 01/17/2021 4:40 PM EST Bilateral mammography is performed in conjunction with computed aided detection. 3-D tomography along with 2-D C view imaging was also performed. Comparison made to previous dated as far back as 11/20/2008 and as recent as 11/15/2019. No suspicious masses, areas of architectural distortion or suspicious microcalcifications. Small asymmetry in the anterior outer left breast is stable for years. Procedure Note Tyrel Simpson MD - 01/17/2021 Bilateral mammography is performed in conjunction with computed aideddetection. 3-D tomography along with 2-D C view imaging was alsoperformed. Comparison made to previous dated as far back as 11/20/2008 andas recent as 11/15/2019. No suspicious masses, areas of architectural distortion or suspiciousmicrocalcifications. Small asymmetry in the anterior outer left breast is stable for years. IMPRESSION: No mammographic signs of malignancy. Annual screening is recommended. BI-RADS CATEGORY: 2 - Benign finding. DENSITY: The breast tissue is almost entirely fat. Raul Medina MD IMG MG EXAMS Final Result documented in this encounter Visit Diagnoses Diagnosis Breast screening Breast screening, unspecified Breast screening Breast screening, unspecified documented in this encounter Care Teams Nurse Auditor Relationship Specialty Start Date End Date Raul Medina MD [address] [place] [address] [place] [address] PCP - General Internal Medicine 10/25/17 Pcp, Unknown 09/18/17 Raul Medina MD [address] [place] [address] [place] [address] Historical LMR Provider 09/13/17 Maninder Warren MD [address] [place] [address] Historical LMR Provider 09/13/17 documented as of this encounter Additional Source Comments The information contained in this document represents components of the legal health record. It is not the complete legal health record.[facility]
--- OUTSIDE RECORDS SUMMARY | 2025-08-06 09:15 | XMS_ITS | Encounter Summary ---
Author Organization [facility] Address [address] [place] [address] Phone Care Team Providers Care Educational Assistant Name Role Phone Raul Medina MD Primary Care Provider [phone] Pcp, Unknown Unavailable Unavailable Raul Medina MD Unavailable [phone] Maninder Warren MD Unavailable [phone] Encounter Details Date Type Department Care Team (Late st Contact Info) Description 11/26/2020 Procedure Pass [address] [address] Social History Tobacco Use Types Packs/Day Years [...] st Contact Info) Description 05/08/2025 Procedure Pass [address] [address] 12/07/2025 9:15 AM EST Appointment [address] [address] Raul Medina MD [address] [place] [address] [place] [address] documented as of this encounter Visit Diagnoses Not on filedocumented in this encounter Care Teams Educational Assistant Relationship Specialty Start Date End Date Raul Medina MD [address] [place] [address] [place] [address] PCP - General Internal Medicine 10/25/17 Pcp, Unknown 09/18/17 Raul Medina MD [address] [place] [address] [place] [address] Historical LMR Provider 09/13/17 Maninder Warren MD [address] [place] [address] Historical LMR Provider 09/13/17 documented as of this encounter Additional Source Comments The information contained in this document represents components of the legal health record. It is not the complete legal health record.[facility]
--- OUTSIDE RECORDS SUMMARY | 2025-08-06 09:15 | XMS_ITS | Clinical Summary ---
Author Organization [facility] Address [address] [place] [address] Phone Care Team Providers Care Product Steward Name Role Phone Raul Medina MD Primary Care Provider [phone] Pcp, Unknown Unavailable Unavailable Raul Medina MD Unavailable [phone] Maninder Warren MD Unavailable [phone] Allergies Active Allergy Reactions Criticality Noted Date Comments Tomato 07/31/2022 Medications levothyroxine (SYNTHROID, LEVOTHROID) 137 MCG tablet Take 1 tablet by mouth every morning. on an empty stomach Active hydroCHLOROthia zide (HYDRODIURIL) 12.5 MG tablet Take 12.5 mg by mouth daily. Active fluocinonide 0.05 % cream 2 Active clobetasol (TEMOVATE) 0.05 % ointmentIndicat ions:Lichen sclerosus Apply topically 2 (two) times a week. Sparingly externally twice weekly 15 g 4 Active Additional Information Patient not taking.Reported on 09/07/2024 losartan (COZAAR) 25 MG tablet Take 25 mg by mouth. 4 Active aspirin 81 mg chewable tablet Take 81 mg by mouth. 4 Active ezetimibe (ZETIA) 10 mg tablet Take 10 mg by mouth. 4 Active atorvastatin (LIPITOR) 40 MG tablet 90 each, 0 Refill(s), TAKE 1 TABLET BY MOUTH DAILY, 0 Refills, 08/29/24 9:27:00 EDT, Partial fill upon patient request if the prescription is for a schedule II opioid drug. Active Active Problems Problem Noted Date Diagnosed Date Carotid artery stenosis without cerebral infarct ion 09/07/2024 TIA involving carotid artery 09/07/2024 S/P carotid endarterectomy 08/29/2024 Osteoarthritis of right hip 12/17/2023 Hypothyroid 05/16/2021 Lichen sclerosus 05/24/2018 Assessment & Plan (05/24/2018 10:09 AM EDT): Clinical exam convincing for LS, not biopsy proven. Sparing use of clobetasol and overlay with estrogen cream discussed Encounters Date Type Department Care Team Description 05/08/2025 Transcribe Orders Virtual Department [address] [place] [address] Raul Medina MD Breast screening (Primary Dx) from Last 3 Months Immunizations Immunization Administration Dates Next Due COVID-19, Unspecified Formulation 12/02/2021 Influenza Quadrivalent Preservative Free IM 06/30 Influenza Quadrivalent w/ Preservative IM 2018,08/31/2018 Tdap 07/05/2015 Zoster recombinant 02/21/2021 Family History Medical History Relation Comments CV disease Father Hyperlipidemia Father Hypertension Father Stomach cancer Father CV disease Maternal Grandmother CV disease Mother Stroke Mother Hypertension Paternal Grandfather Breast cancer Paternal Grandmother Relation Status Comments Father Maternal Grandmother Mother Paternal Grandfather Paternal Grandmother Social History Tobacco Use Types Packs/Day Years Used Date Smoking Tobacco: Never Passive Smoke Exposure: Never Smokeless Tobacco: Never Tobacco Cessation:Counseling Given: Not Answered Alcohol Use Standard Drinks/Week Comments Yes 3 [...] 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 file Not on file Not on file Last Filed Vital Signs Vital Sign Reading Time Taken Comments Blood Pressure 132/87 03/24/2025 10:26 AM EDT Pulse 88 03/24/2025 10:26 AM EDT Temperature 37.4 C (99.4 F) 03/24/2025 10:26 AM EDT Respiratory Rate 16 03/24/2025 10:26 AM EDT Oxygen Saturation 96% 03/24/2025 10:26 AM EDT Inhaled Oxygen Concentration - - Weight 66.2 kg (146 lb) 12/17/2023 4:23 PM EST Height 170.2 cm (5' 7 ) 05/16/2021 1:25 PM EDT Body Mass Index 22.87 05/16/2021 1:25 PM EDT Plan of Treatment Upcoming Encounters Date Type Department Care Team (Late st Contact Info) Description 05/08/2025 Procedure [address] [address] 12/07/2025 9:15 AM EST Appointment [address] [address] Raul Medina MD [address] [place] [address] [place] [address] Health Maintenance Due Date Last Done Comments TSH LEVEL 1959 DEPRESSION SCREENING 1971 HEPATITIS C SCREENING 1977 HIV ONE-TIME SCREENING (18-65 YEARS) 1977 COLOGUARD 2004 COLONOSCOPY 2004 COLORECTAL CANCER SCREENING 2004 FIT TEST 2004 FOBT 2004 SIGMOIDOSCOPY 2004 VIRTUAL COLONOSCOPY 2004 PNEUMOCOCCAL VACCINES (50+ years) (1 of 1 - PCV) 2009 RSV VACCINE (1 - Risk 60-74 years 1-dose series) 2019 CREATININE LEVEL 02/02/2021 02/03/2020 POTASSIUM LEVEL 02/02/2021 02/03/2020 ZOSTER VACCINES (2 of 2) 04/18/2021 02/21/2021 OSTEOPOROSIS SCREENING INITIAL (ONE-TIME) 2024 INFLUENZA VACCINE (#1) 2025 , 08/30/2019, 08/31/2018 Adult Td,Tdap Booster 07/05/2025 07/05/2015 PAP SMEAR 07/12/2025 07/12/2020, 06/29, 04/30/2015, Additional history exists COVID-19 VACCINE ( season) 2025 12/02/2021, 08/29/2021 MAMMOGRAM 02/17/2026 02/18/2024, 12/31, 01/19/2022, Additional history exists SMOKING STATUS SCREENING (Once After 26 Yrs) Completed 03/24/2025 HEPATITIS A VACCINES Aged Out No long er eligible based on patient's age to complete this topic HIB VACCINES Aged Out No longer eligi ble based on patient's age to complete this topic MENINGOCOCCAL VACCINES (ACWY) Aged Out No longer eligible based on patient's age to complete this topic MENINGOCOCCAL VACCINES (B) Aged Out N o longer eligible based on patient's age to complete this topic Medical Devices Not on file Procedures Procedure Name Priority Date/Time Associated Diagnosis Comments BI MAMMOGRAM SCREENING WITH TOMOSYNTHESIS WITH CAD (BILATERAL) Routine 02/18/2024 3:48 PM EDT Breast screening PAP TEST Routine 07/12/2020 12:00 AM EDT BASIC METABOLIC PANEL STAT 02/03/2020 8:12 PM EST from Last 3 Months or Most Recently Relevant to Health Maintenance Results * BI MAMMOGRAM SCREENING WITH TOMOSYNTHESIS [...] Medina MD IMG MG EXAMS Final Result * Pap Smear (07/12/2020 12:00 AM EDT) 07/12/2020 07/15/2020 8:4 6 AM EDT Narrative SEE NARRATIVE - 07/17/2020 3:35 PM EDT [address] [address] Screen Printing Press Operator: Vanessa Gibson MD TECHNICAL SME Cytology Report FINAL DIAGNOSIS A. PAP SMEAR (SUREPATH) CE: SPECIMEN ADEQUACY: Satisfactory for evaluation; transformation zone present. INTERPRETATION: NEGATIVE FOR INTRAEPITHELIAL LESION OR MALIGNANCY. Electronically Signed Out By: BECKA Landa(ASCP) The Pap test is a screening test primarily for squamous cancers and precursors and has associated false-negative and false-positive results. New technologies such as liquid-based preparations may decrease but will not eliminate all false-negative results. Regular sampling and follow-up of unexplained clinical signs and symptoms are recommended to minimize false negative results. PROCEDURES/ADDENDA HPV Testing (Requested) Ordered Date: 07/15/2020 A. PAP SMEAR (SUREPATH) CE: Human Papilloma Virus Test Negative for high-risk human papillomavirus types 16, 18, 45 and the Other high risk probe set (Includes 31, 33, 35, 39, 51, 52, 56, 58, 59, 66, 68) by [employer] Onclarity HR-HPV analysis. Clinical correlation is advised. This HPV test was performed at [facility], [address] [place] [address]. This test has been FDA approved for SurePath cervical cytology specimens. The accuracy and precision of this test for all other specimen sources has been verified in the Cytopathology Laboratory of the [facility] and has not been cleared or approved by the U.S. Food and Drug Administration. Clinical correlation is advised. CLINICAL HISTORY Date of Last Menstrual Period: Not Provided Menstrual History: Post Menopausal Other Clinical Conditions: Screening Pap SPECIMEN SOURCE A: PAP SMEAR (SUREPATH) CE Patient Name: TERESA POWER : 1960 (Age: 59) Sex: F Institution: [facility] Location: [facility] Date of Collection: 07/12/2020 Date of Reported: 07/16/2020 13:26 Results to: Alfonso Scott MD, BS Alfonso Scott MD CYTOLOGY ORDERABLES Edited Re sult - Final SEE NARRATIVE * (ABNORMAL) Basic metabolic panel (02/03/2020 8:12 PM EST) SODIUM 142 133 - 146 mmol/L [facility] CHLORIDE 103 96 - 108 mmol/L [facility] POTASSIUM 4.2 3.3 - 5.1 mmol/L [facility] CO2 27 21 - 35 mmol/L [facility] BUN 18 6 - 19 mg/dL [facility] CREATININE 0.60 0.5 - 1.5 mg/dL [facility] GLUCOSE 105(H) 70 - 99 mg/dL [facility] CALCIUM 10.0 8.4 - 10.3 mg/dL [facility] EGFR 99 >59 mL/min/1.7 3m2 [facility] Comment:If patient is black, multiply result by 1.159. Estimated glomerular filtration rate calculated using the CKD-EPI equation. ANION GAP 16 10 - 20 mmol/L [facility] Blood 02/03/2020 8:12 PM EST 02/03/2020 8:20 PM EST Deep Hurtado MD LAB BLOOD ORDERABLES Final Re [facility] Organization Address City/State/ZIP Co de Phone Number [facility] [address] [place] [address] from Last 3 Months or Most Recently Relevant to Health Maintenance [facility] PART A & B [employer] BENEFITS ADMINISTRATORS [facility] MEDICARE PART A & B [facility] BENEFITS ADMINISTRATORS [place] MEDICARE PART A & B [facility] ADMINISTRAT[place] [address] [address] [address] MEDICARE PART A & B [facility] ADMINISTRATORS [facility] [id number] [employer] BENEFITS ADMINISTRATORS [facility] MEDICARE PART A & B Member Subscriber Plan / Payer (Ef fective 2024-Present) Name:Teresa Power Member ID:[id number] Relation to Subscriber:Self Name:Teresa Power Subscriber ID:[id number] Payer ID:[id number] Group ID:Not on file Type:Medicare Address: [facility] [employer] [facility] [address] [place] [address] [employer] BENEFITS ADMINISTRATORS Care Teams Product Steward Relationship Specialty Start Date End Date Raul Medina MD [address] [place] [address] [place] [address] PCP - General Internal Medicine 10/25/17 Pcp, Unknown 09/18/17 Raul Medina MD [address] [place] [address] [place] [address] Historical LMR Provider 09/13/17 Maninder Warren MD [address] [place] [address] Historical LMR Provider 09/13/17 Additional Source Comments The information contained in this document represents components of the legal health record. It is not the complete legal health record.[facility]
--- OUTSIDE RECORDS SUMMARY | 2025-08-06 09:16 | XMS_ITS | Encounter Summary ---
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 Not on file Not on file Not on file documented as of this encounter Plan of Treatment Upcoming Encounters Date Type Department Care Team (Late st Contact Info) Description 05/08/2025 Procedure Pass [address] [address] 12/07/2025 9:15 AM EST Appointment [address] [address] Raul Medina MD [address] [place] [address] [place] [address] documented as of this encounter Visit Diagnoses Not on filedocumented in this encounter Care Teams Shift Supervisor Melting Relationship Specialty Start Date End Date Raul Medina MD [address] [place] [address] [place] [address] PCP - General Internal Medicine 10/25/17 Pcp, Unknown 09/18/17 Raul Medina MD [address] [place] [address] [place] [address] Historical LMR Provider 09/13/17 Maninder Warren MD [address] [place] [address] Historical LMR Provider 09/13/17 documented as of this encounter Additional Source Comments The information contained in this document represents components of the legal health record. It is not the complete legal health record.[facility]
== END 2025-08-06 09:12 | disposition home or self-care (01) ==
LOC: HO.HMCH 08:21
DX: I10 Essential (primary) hypertension (principal); E03.9 Hypothyroidism, unspecified; K76.9 Liver disease, unspecified; N20.0 Calculus of kidney; F10.90 Alcohol use, unspecified, uncomplicated; I77.9 Disorder of arteries and arterioles, unspecified

== ENCOUNTER 2025-08-06 09:18 | Outpatient (REF) | payer OTHER, MEDICARE, SELFPAY ==
[2025-08-06 10:18] LABS: Hemoglobin A1C 131.3987 umol/L; Total Hemoglobin (HGBA1C) 3607.6788 umol/L
[2025-08-06 10:53] LABS: Folate 11.9 ng/mL (> or = 4.0); Vitamin B12 280 pg/mL (200-900)
[2025-08-06 13:44] LABS: Alanine Aminotransferase 26 U/L (0-31); Albumin Level 4.7 g/dL (3.5-5.0); Alkaline Phosphatase 58 U/L (39-117); Aspartate Amino Transferase 25 U/L (5-31); Cholesterol 269 mg/dL (<200); HDL Cholesterol 117 mg/dL (>40); Total Protein 7.7 g/dL (6.5-8.0); Triglycerides 117 mg/dL (<150)
[2025-08-06 14:04] LABS: Free T4 (Free Thyroxine) 1.20 ng/dL (0.71-1.85)
== END 2025-08-06 09:19 | disposition home or self-care (01) ==
LOC: HO.10HDL 09:18
DX: Z00.00 Encounter for general adult medical examination without abnormal findings (principal); Z13.29 Encounter for screening for other suspected endocrine disorder; E03.9 Hypothyroidism, unspecified; Z13.21 Encounter for screening for nutritional disorder; R79.89 Other specified abnormal findings of blood chemistry; K76.9 Liver disease, unspecified; Z13.220 Encounter for screening for lipoid disorders; Z13.1 Encounter for screening for diabetes mellitus
CPT/HCPCS: 36415; 80061; 80076; 82306; 82607; 82746; 83036; 84439; 84443

== ENCOUNTER 2025-08-06 10:18 | Outpatient (REF) | payer OTHER, MEDICARE, SELFPAY ==
--- NOTE | ~2025-08-06 | MR_ITS ---
EXAMINATION: MR ABDOMEN WITHOUT THEN WITH IV CONTRAST HISTORY: LIVER MASS ABN U/S R/O HEMANGIOMA COMPARISON: Correlation is made with an abdominal ultrasound dated 12/01/[address] is gained dated 05/22/2025. TECHNIQUE: Axial in and out of phase T1-weighted gradient echo, axial diffusion weighted, and axial and coronal HASTE T2 with fat saturation images were obtained through the abdomen. Subsequently, fat suppressed axial and coronal T1-weighted images were obtained after the intravenous administration of 6.5 mL Gadavist. FINDINGS: Liver: There is no loss of signal intensity in the liver on opposed phase imaging to suggest steatosis. There is a 2.4 x 3.1 x 1.5 cm T2 hyperintense mass in segment VIII corresponding to the lesion noted on CT. This demonstrates peripheral nodular enhancement with gradual fill-in over time, compatible with a hemangioma. An additional tiny subcentimeter enhancing lesion is seen in segment V (best seen on series 8, image 19) which likely represents an additional hemangioma. Evaluation is limited by the small size of the lesion. The hepatic and portal veins are patent. There is no intrahepatic biliary dilatation. Gallbladder/biliary tree: No gallstones are identified. The common bile duct is normal in caliber. No intraluminal filling defects are identified to suggest choledocholithiasis. Spleen: The spleen is unremarkable. Pancreas: The pancreas is unremarkable. There is no enhancing pancreatic mass. The pancreatic duct is normal in caliber. Adrenals: The adrenal glands are unremarkable. Kidneys: The right kidney is unremarkable. There are subcentimeter left renal cysts. There is no hydronephrosis. Lymph nodes: There is no retroperitoneal lymphadenopathy in the upper abdomen. Fluid: There is no ascites in the upper abdomen. Visualized bowel: The visualized small and large bowel loops are unremarkable in appearance. Visualized bones: The visualized bones demonstrate normal marrow signal intensity. MR/MR abdomen wo/w con IMPRESSION: 2.4 x 3.1 x 1.5 cm hemangioma in segment VIII of the liver corresponding to the abnormality noted on CT. An additional subcentimeter probable hemangioma is seen in segment V. Electronically signed by: Hayder Red MD 08/06/2025 11:48 AM EDT RP
== END 2025-08-06 10:19 | disposition home or self-care (01) ==
LOC: HO.MRI 10:18
PROVIDERS: Visit Provider Internal Medicine
DX: R16.0 Hepatomegaly, not elsewhere classified (principal); R93.2 Abnormal findings on diagnostic imaging of liver and biliary tract; I10 Essential (primary) hypertension; E03.9 Hypothyroidism, unspecified; N20.0 Calculus of kidney; K76.9 Liver disease, unspecified; I77.9 Disorder of arteries and arterioles, unspecified; F10.90 Alcohol use, unspecified, uncomplicated
CPT/HCPCS: 74183; 99212; A9585

== ENCOUNTER → 2025-08-06 10:28 | Outpatient (BNV) | payer OTHER, MEDICARE, SELFPAY | PROVIDERS: Visit Provider Radiology Diagnostic Radiology | DX: D18.03 Hemangioma of intra-abdominal structures (principal) | CPT/HCPCS: 74183 ==

== ENCOUNTER 2025-09-05 07:17 | Day surgery (SDC) | payer OTHER, MEDICARE, SELFPAY ==
--- OUTSIDE RECORDS SUMMARY | 2024-09-07 17:10 | XMS_ITS | Encounter Summary ---
Author Organization [facility] Address [address] [place] [address] Phone Care Team Providers Care Commercial Agent Name Role Phone Raul Medina MD Primary Care Provider [phone] Pcp, Unknown Unavailable Unavailable Raul Medina MD Unavailable [phone] Maninder Warren MD Unavailable [phone] Encounter Details Date Type Department Care Team (Late st Contact Info) Description 09/07/2024 5:10 PM EDT Hospital Encounter [facility] [address] [place] [phone] Marline Mares CNP [address] [place] [address] [email or web address] Social History Tobacco Use Types Packs/Day Years [...] 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 No acute osseous abnormality. Marline Mares WHISTLE PUNK IMG XR PELVIS Final Resul t documented in this encounter Visit Diagnoses Not on filedocumented in this encounter Care Teams Commercial Agent Relationship Specialty Start Date End Date Raul Medina MD [address] [place] [address] Dr Mason [address] [place] [phone] PCP - General Internal Medicine 10/25/17 Pcp, Unknown 09/18/17 Raul Medina MD [address] [place] [address] Dr Mason [address] [place] [address] Historical LMR Provider 09/13/17 Maninder Warren MD [address] [place] [phone] Historical LMR Provider 09/13/17 documented as of this encounter Additional Source Comments The information contained in this document represents components of the legal health record. It is not the complete legal health record.[facility]
--- OUTSIDE RECORDS SUMMARY | 2025-08-21 15:50 | XMS_ITS | Encounter Summary ---
Author Organization [facility] Address [address] [place] [address] Phone Care Team Providers Care Bilingual Call Center Representative Name Role Phone Raul Medina MD Primary Care Provider [phone] Pcp, Unknown Unavailable Unavailable Raul Medina MD Unavailable [phone] Maninder Warren MD Unavailable [phone] Encounter Details Date Type Department Care Team (Late st Contact Info) Description 12/25/2022 Procedure Pass [address] [address] Social History Tobacco Use Types Packs/Day Years [...] Contact Info) Description 05/08/2025 Procedure Pass [address] [address] 12/07/2025 9:15 AM EST Appointment [address] [address] Raul Medina MD [address] [place] [address] [place] [address] documented as of this encounter Visit Diagnoses Not on filedocumented in this encounter Care Teams Bilingual Call Center Representative Relationship Specialty Start Date End Date Raul Medina MD [address] [place] [address] [place] [address] PCP - General Internal Medicine 10/25/17 Pcp, Unknown 09/18/17 Raul Medina MD [address] [place] [address] [place] [address] Historical LMR Provider 09/13/17 Maninder Warren MD [address] [place] [address] Historical LMR Provider 09/13/17 documented as of this encounter Additional Source Comments The information contained in this document represents components of the legal health record. It is not the complete legal health record.[facility]
--- OUTSIDE RECORDS SUMMARY | 2025-08-21 15:50 | XMS_ITS | Encounter Summary ---
Author Organization [facility] Address [address] [place] [address] Phone Care Team Providers Care Stock Puller Name Role Phone Pcp, Unknown Primary Care Provider Unavailabl e Raul Medina MD Primary Care Provider [phone] Pcp, Unknown Unavailable Unavailable Raul Medina MD Unavailable [phone] Maninder Warren MD Unavailable [phone] Encounter Details Date Type Department Care Team (Late st Contact Info) Description 09/18/2017 Ancillary Orders [facility] [address] [place] [address] Maninder Warren MD [address] [place] [address] Visit for screening mammogram Social History Tobacco [...] st Contact Info) Description 05/08/2025 Procedure Pass [address] [address] 12/07/2025 9:15 AM EST Appointment [address] [address] Raul Medina MD [address] [place] [address] Dr Baez TONI Vieyra [address] documented as of this encounter Results * [...] breast tissue is almost entirely fat. POS: [id number] Narrative 10/26/2017 8:25 AM EST Screening Mammogram, [...] breast tissue is almost entirely fat. POS: [id number] Maninder Warren MD IMG MG EXAMS Final Result documented in this encounter Visit Diagnoses Diagnosis Visit for screening mammogram Visit for screening mammogram documented in this encounter Care Teams Stock Puller Relationship Specialty Start Date End Date Pcp, Unknown PCP - General 09/18/17 10/24/17 Raul Medina MD [address] [place] [address] [place] [address] PCP - General Internal Medicine 10/25/17 Pcp, Unknown 09/18/17 Raul Medina MD [address] [place] [address] Dr Mason [address] [place] [address] Historical LMR Provider 09/13/17 Maninder Warren MD [address] [place] [address] Historical LMR Provider 09/13/17 documented as of this encounter Additional Source Comments The information contained in this document represents components of the legal health record. It is not the complete legal health record.[facility]
--- OUTSIDE RECORDS SUMMARY | 2025-08-21 15:50 | XMS_ITS | Patient Health Record ---
Author Organization [facility] Address [address] [place] [address] Care Team Providers Care Formulator Compounder Name Role Phone Monserrat Cartwright Primary Care Provider Hayder Diaz Unavailable [phone] Allergies No Known Allergies Results Component Value Reference Range Notes Complete Blood Count Auto Di ff Reviewed date:07/23/2025 10:59:52 PM Interpretation: Performing Lab:[facility], [address] [place] [phone] Notes/Report: White Blood Count 4.3 4.8-10.8 X10*3/uL [...] Panel Reviewed date:07/23/2025 10:59:29 PM Interpretation: Performing Lab:[address] [address] Notes/Report: Bilirubin Total 0.4 0.0-1.0 mg/dL Bilirubin Direct 0.2 0.0-0.5 mg/dL Aspartate Amino Transferase 36 5-31 U/L Alanine Aminotransferase 28 0-31 U/L Total Protein 6.7 6.5-8.0 g/dL Albumin Level 4.2 3.5-5.0 g/dL Alkaline Phosphatase 54 39-117 U/L Blood Urea Nitrogen Reviewed date:07/23/2025 10:59:09 PM Interpretation: Performing Lab:[facility], [address] [place] [phone] Notes/Report: Blood Urea Nitrogen 16 9-16 mg/dL Creatinine Reviewed date:07/23/2025 10:59:01 PM Interpretation: Performing Lab:[address] [phone] Notes/Report: Creatinine 0.60 0.5-1.4 mg/dL Estimated Glomerular Filt Rate > 60 Chronic Kidney Disease: Estimated GFR < 60 mL/min/1.73m2 Severe Kidney Disease: Estimated GFR < 15 mL/min/1.73m2 Carcinoembryonic Antigen Reviewed date:07/23/2025 10:58:51 PM Interpretation: Performing Lab:[address] [phone] Notes/Report: Carcinoembryonic Antigen 2.60 CEA Reference Range: [...] Fetoprotein Reviewed date:07/24/2025 11:53:58 AM Interpretation: Performing Lab:[facility], [address] [place] [phone] Notes/Report: Alpha Fetoprotein 3.7 Reference Range: <6.1 The use of AFP as a tumor marker in females is not recommended. This test was performed using the Rashaad Cornell chemiluminescent method. Values obtained from different assay methods cannot be used interchangeably. AFP levels, regardless of value, should not be interpreted as absolute evidence of the presence or absence of disease. THIS TEST WAS PERFORMED AT: [facility] [address] [place] [phone] LJ TRINIDAD MD MR abdomen wo/w con (Not yet reviewed by provider) Interpretation: Performing Lab: Notes/Report: [address] [address] Magnetic Resonance Report Signed Patient: Melany Power MR#: [id number] : 1960 Acct:[id number] Age/Sex: 64 / F ADM Date: 08/06/25 Loc: .MRI Attending Dr: Hayder Long MD Ordering Physician: Hayder Long MD Date of Service: 08/06/25 Procedure(s): MR abdomen wo/w con Accession Number(s): [id number] cc: Monserrat Aguilar PA-C; Hayder Long MD Reason for Exam: LIVER MASS ABN U/S R/O HEMANGIOMA EXAMINATION: MR ABDOMEN WITHOUT THEN WITH IV CONTRAST HISTORY: LIVER MASS ABN U/S R/O HEMANGIOMA COMPARISON: Correlation is made with an abdominal ultrasound dated 12/01/[address] is gained dated 05/22/2025. TECHNIQUE: Axial in and out of phase T1-weighted gradient echo, axial diffusion weighted, and axial and coronal HASTE T2 with fat saturation images were obtained through the abdomen. Subsequently, fat suppressed axial and coronal T1-weighted images were obtained after the intravenous administration of 6.5 mL Gadavist. FINDINGS: Liver: There is no loss of signal intensity in the liver on opposed phase imaging to suggest steatosis. There is a 2.4 x 3.1 x 1.5 cm T2 hyperintense mass in segment VIII corresponding to the lesion noted on CT. This demonstrates peripheral nodular enhancement with gradual fill-in over time, compatible with a hemangioma. An additional tiny subcentimeter enhancing lesion is seen in segment V (best seen on series 8, image 19) which likely represents an additional hemangioma. Evaluation is limited by the small size of the lesion. The hepatic and portal veins are patent. There is no intrahepatic biliary dilatation. Gallbladder/biliary tree: No gallstones are identified. The common bile duct is normal in caliber. No intraluminal filling defects are identified to suggest choledocholithiasis. Spleen: The spleen is unremarkable. Pancreas: The pancreas is unremarkable. There is no enhancing pancreatic mass. The pancreatic duct is normal in caliber. Adrenals: The adrenal glands are unremarkable. Kidneys: The right kidney is unremarkable. There are subcentimeter left renal cysts. There is no hydronephrosis. Lymph nodes: There is no retroperitoneal lymphadenopathy in the upper abdomen. Fluid: There is no ascites in the upper abdomen. Visualized bowel: The visualized small and large bowel loops are unremarkable in appearance. Visualized bones: The visualized bones demonstrate normal marrow signal intensity. MR/MR abdomen wo/w con IMPRESSION: 2.4 x 3.1 x 1.5 cm hemangioma in segment VIII of the liver corresponding to the abnormality noted on CT. An additional subcentimeter probable hemangioma is seen in segment V. Electronically signed by: Hayder Red MD 08/06/2025 11:48 AM EDT Dictated By: Hayder Red MD Signed By: <Electronically signed by Hayder Red MD in OV> 08/06/25 1148 DD/ 1028 TD/TT: 08/06/25 1115 Pulmonology Physician: Reason For Referral No Information Medications Medication [...] Status Risk Notes Problem Colon cancer screening (322481447) Colon cancer screening (Z12.11) Active confirmed Problem [id number] Preprocedural examination (Z01.818) Active confirmed Problem Liver mass (161834873) Liver mass (R16.0) Active confirmed Problem Abnormal findings diagnostic imaging of liver and biliary tract (157996132) Abnormal liver ultrasound (R93.2) Active confirmed Vital Signs Temperature 95.7 degrees Fahrenheit 06/13/2025 Blood pressure diastolic 01 mm Hg 06/13/2025 Height 66 in 06/13/2025 Blood pressure systolic 001 mm Hg 06/13/2025 Weight 146.4 lbs 06/13/2025 BMI 23.63 kg/m2 06/13/2025 Procedures Procedure Date Ordered Date Performed Result Body Sit e COLONOSCOPY 06/13/2025 N/A Encounters Encounter Location Date Provider [facility] [address] [facility] [address] [place] [address] 06/13/2025 Hayder Long Liver mass R16.0 ; [...] MRI ABD W&WO CONTRAST 06/13/2025 Creatinine 06/13/2025 MR abdomen wo/w con 08/06/2025 Future Test Test Name Order Date COLONOSCOPY 03/04/2012 Next Appt Details Provider Name:Hayder Long , 09/05/2025 09:40:00 AM, [address] [place] [address] , [place], [place], [id number], Insurance Providers Payer Name Payer Address Payer Phone Subscriber Number Group Number Insured Name Patient Relationship to Insured Coverage Start Date Coverage End Date [employer] OF [place] [address] [address] [place] [address] [id number] CASSIUSMELANY JIN Self - patient is the insured Medical (General) History Medical History History ICD Code Hypothyroidism Denies [place],DM,CVA,Lung disease,renal dise ase Neg. screening colonoscopy in 02/2012 TIA HTN Kidney stones Liver lesion of the right he patic lobe seen on CT scan without contrast in April 2025. Surgical History Surgery Date(Month/Year) right carotid endarterectomy 06/2024 tubal ligation right hip replacement 11/2018 left hip replacement 11/06/2019 parathyroidectomy
--- OUTSIDE RECORDS SUMMARY | 2025-08-21 15:50 | XMS_ITS | Encounter Summary ---
Author Organization [facility] Address [address] [place] [address] Phone Care Team Providers Care Public Health Social Worker Name Role Phone Raul Medina MD Primary Care Provider [phone] Pcp, Unknown Unavailable Unavailable Raul Medina MD Unavailable [phone] Maninder Warren MD Unavailable [phone] Encounter Details Date Type Department Care Team (Late st Contact Info) Description 12/14/2023 Transcribe Orders Virtual Department [address] [place] [address] Raul Medina MD [address] [place] [address] [place] [address] Breast screening (Primary Dx) Social History Tobacco [...] st Contact Info) Description 05/08/2025 Procedure Pass [address] [address] 12/07/2025 9:15 AM EST Appointment [address] [address] Raul Medina MD [address] [place] [address] [place] [address] documented as of this encounter Results * [...] unspecified documented in this encounter Care Teams Public Health Social Worker Relationship Specialty Start Date End Date Raul Medina MD [address] [place] [address] Dr Mason [address] [place] [address] PCP - General Internal Medicine 10/25/17 Pcp, Unknown 09/18/17 Raul Medina MD [address] [place] [address] Dr Mason [address] [place] [address] Historical LMR Provider 09/13/17 Maninder Warren MD [address] [place] [address] Historical LMR Provider 09/13/17 documented as of this encounter Additional Source Comments The information contained in this document represents components of the legal health record. It is not the complete legal health record.[facility]
--- OUTSIDE RECORDS SUMMARY | 2025-08-21 15:50 | XMS_ITS | Encounter Summary ---
Author Organization [facility] Address [address] [place] [address] Phone Care Team Providers Care Social Staff Worker Name Role Phone Raul Medina MD Primary Care Provider [phone] Pcp, Unknown Unavailable Unavailable Raul Medina MD Unavailable [phone] Maninder Warren MD Unavailable Encounter Details Date Type Department Care Team (Late Contact Info) Description 10/18/2018 Ancillary Orders Virtual Department [address] [place] [address] Raul Medina MD [address] [place] [address] [place] [address] Breast screening Social History Tobacco Use Types [...] (Late Contact Info) Description 05/08/2025 Procedure Pass [address] [address] 12/07/2025 9:15 AM EST Appointment [address] [address] Raul Medina MD [address] [place] [address] Dr Baez [place] [address] documented as of this encounter Results * [...] unspecified documented in this encounter Care Teams Social Staff Worker Relationship Specialty Start Date End Date Raul Medina MD [address] [place] [address] Dr [address] [place] [address] PCP - General Internal Medicine 10/25/17 Pcp, Unknown 09/18/17 Raul Medina MD [address] [place] [address] Dr Mason [address] [place] [address] Historical LMR Provider 09/13/17 Maninder Warren MD [address] [place] [address] Historical LMR Provider 09/13/17 documented as of this encounter Additional Source Comments The information contained in this document represents components of the legal health record. It is not the complete legal health record.[facility]
--- OUTSIDE RECORDS SUMMARY | 2025-08-21 15:50 | XMS_ITS | Encounter Summary ---
Author Organization [facility] Address [address] [place] [address] Phone Care Team Providers Care Planning Engineer Name Role Phone Raul Medina MD Primary Care Provider [phone] Pcp, Unknown Unavailable Unavailable Raul Medina MD Unavailable [phone] Maninder Warren MD Unavailable [phone] Encounter Details Date Type Department Care Team (Late Contact Info) Description 11/12/2021 Transcribe Orders Virtual Department [address] [place] [address] Raul Medina MD [address] [place] [address] [place] [id number] Social History Tobacco Use Types Packs/Day Years [...] (Late Contact Info) Description 05/08/2025 Procedure Pass [address] [address] 12/07/2025 9:15 AM EST Appointment [address] [address] Raul Medina MD [address] [place] [address] [place] [id number] documented as of this encounter Visit Diagnoses Not on filedocumented in this encounter Care Teams Planning Engineer Relationship Specialty Start Date End Date Raul Medina MD [address] [place] [address] [place] [id number] PCP - General Internal Medicine 10/25/17 Pcp, Unknown 09/18/17 Raul Medina MD [address] [place] [address] [place] [id number] Historical LMR Provider 09/13/17 Maninder Warren MD [address] [place] [address] Historical LMR Provider 09/13/17 documented as of this encounter Additional Source Comments The information contained in this document represents components of the legal health record. It is not the complete legal health record.[facility]
--- OUTSIDE RECORDS SUMMARY | 2025-08-21 15:50 | XMS_ITS | Encounter Summary ---
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 Not on file Not on file documented as of this encounter Plan of Treatment Upcoming Encounters Date Type Department Care Team (Late st Contact Info) Description 05/08/2025 Procedure Pass [address] [address] 12/07/2025 9:15 AM EST Appointment [address] [address] Raul Medina MD [address] [place] [address] [place] [address] documented as of this encounter Visit Diagnoses Not on filedocumented in this encounter Care Teams Spa Manager Relationship Specialty Start Date End Date Raul Medina MD [address] [place] [address] [place] [address] PCP - General Internal Medicine 10/25/17 Pcp, Unknown 09/18/17 Raul Medina MD [address] [place] [address] [place] [address] Historical LMR Provider 09/13/17 Maninder Warren MD [address] [place] [address] Historical LMR Provider 09/13/17 documented as of this encounter Additional Source Comments The information contained in this document represents components of the legal health record. It is not the complete legal health record.[facility]
--- OUTSIDE RECORDS SUMMARY | 2025-08-21 15:50 | XMS_ITS | Encounter Summary ---
Author Organization [facility] Address [address] [place] [address] Phone Care Team Providers Care Installation Supervisor Name Role Phone Raul Medina MD Primary Care Provider [phone] Pcp, Unknown Unavailable Unavailable Raul Medina MD Unavailable [phone] Maninder Warren MD Unavailable Encounter Details Date Type Department Care Team (Late Contact Info) Description 09/25/2019 Ancillary Orders Virtual Department [address] [place] [address] Raul Medina MD [address] [place] [address] [place] [address] Breast screening Social History Tobacco Use Types [...] (Late Contact Info) Description 05/08/2025 Procedure Pass [address] [address] 12/07/2025 9:15 AM EST Appointment [address] [address] Raul Medina MD [address] [place] [address] Dr Baez [place], [place] [address] documented as of this encounter Results * BI MAMMOGRAM SCREENING WITH TOMOSYNTHESIS WITH CAD (BILATERAL) (11/15/2019 1:19 PM EST) Anatomical Region Laterality Modality Breast Left, Breast Right, Breast Bilateral Bila teral Mammography 11/15/2019 1:57 PM EST Impressions 11/15/2019 1:59 PM EST No mammographic evidence of malignancy. BI-RADS CATEGORY: 2 - Benign finding. DENSITY: The breast tissue is almost entirely fat. POS - [id number] Narrative 11/15/2019 1:59 PM EST Standard digital [...] and compared with multiple prior studies, most wndpjolm96/17/2018, with utilization of computer-aided detection. The breasts [...] tissue is almost entirely fat. POS - [id number] Raul Medina MD IMG MG EXAMS Final Result documented in this encounter Visit Diagnoses Diagnosis Breast screening Breast screening, unspecified Breast screening Breast screening, unspecified documented in this encounter Care Teams Installation Supervisor Relationship Specialty Start Date End Date Raul Medina MD [address] [place] [address] [place] [address] PCP - General Internal Medicine 10/25/17 Pcp, Unknown 09/18/17 Raul Medina MD [address] [place] [address] [place] [address] Historical LMR Provider 09/13/17 Maninder Warren MD [address] [place] [address] Historical LMR Provider 09/13/17 documented as of this encounter Additional Source Comments The information contained in this document represents components of the legal health record. It is not the complete legal health record.[facility]
--- OUTSIDE RECORDS SUMMARY | 2025-08-21 15:50 | XMS_ITS | Encounter Summary ---
Author Organization [facility] Address [address] [place] [address] Phone Care Team Providers Care Machine Leather Trimmer Name Role Phone Raul Medina MD Primary Care Provider [phone] Pcp, Unknown Unavailable Unavailable Raul Medina MD Unavailable [phone] Maninder Warren MD Unavailable [phone] Encounter Details Date Type Department Care Team (Late st Contact Info) Description 11/26/2020 Procedure Pass [address] [address] Social History Tobacco Use Types Packs/Day Years [...] st Contact Info) Description 05/08/2025 Procedure Pass [address] [address] 12/07/2025 9:15 AM EST Appointment [address] [address] Raul Medina MD [address] [place] [address] [place] [address] documented as of this encounter Visit Diagnoses Not on filedocumented in this encounter Care Teams Machine Leather Trimmer Relationship Specialty Start Date End Date Raul Medina MD [address] [place] [address] [place] [address] PCP - General Internal Medicine 10/25/17 Pcp, Unknown 09/18/17 Raul Medina MD [address] [place] [address] [place] [address] Historical LMR Provider 09/13/17 Maninder Warren MD [address] [place] [address] Historical LMR Provider 09/13/17 documented as of this encounter Additional Source Comments The information contained in this document represents components of the legal health record. It is not the complete legal health record.[facility]
--- OUTSIDE RECORDS SUMMARY | 2025-08-21 15:50 | XMS_ITS | Encounter Summary ---
Author Organization [facility] Address [address] [place] [address] Phone Care Team Providers Care Supply Chain Business Analyst Name Role Phone Raul Medina MD Primary Care Provider [phone] Pcp, Unknown Unavailable Unavailable Raul Medina MD Unavailable [phone] Maninder Warren MD Unavailable [phone] Encounter Details Date Type Department Care Team (Late st Contact Info) Description 12/25/2022 Transcribe Orders Virtual Department [address] [place] [address] Raul Medina MD [address] [place] [address] [place] [address] Breast screening (Primary Dx) Social History Tobacco [...] st Contact Info) Description 05/08/2025 Procedure Pass [address] [address] 12/07/2025 9:15 AM EST Appointment [address] [address] Raul Medina MD [address] [place] [address] [place] [address] documented as of this encounter Results * [...] unspecified documented in this encounter Care Teams Supply Chain Business Analyst Relationship Specialty Start Date End Date Raul Medina MD [address] [place] [address] [place] [address] PCP - General Internal Medicine 10/25/17 Pcp, Unknown 09/18/17 Raul Medina MD [address] [place] [address] Dr Mason [address] [place] [address] Historical LMR Provider 09/13/17 Maninder Warren MD [address] [place] [address] Historical LMR Provider 09/13/17 documented as of this encounter Additional Source Comments The information contained in this document represents components of the legal health record. It is not the complete legal health record.[facility]
--- OUTSIDE RECORDS SUMMARY | 2025-08-21 15:50 | XMS_ITS | Clinical Summary ---
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 PAP SMEAR [...] 52, 56, 58, 59, 66, 68) by Person[employer] HR-HPV analysis. Clinical correlation is advised. This HPV test was performed at [facility], [address] [place] [address]. This test has been FDA approved for SurePath cervical cytology specimens. The accuracy and precision of this test for all other specimen sources has been verified in the Cytopathology Laboratory of the [facility] and has not been cleared or approved by the U.S. Food and Drug Administration. Clinical correlation is advised. CLINICAL HISTORY Date of Last Menstrual Period: Not Provided Menstrual History: Post Menopausal Other Clinical Conditions: Screening Pap SPECIMEN SOURCE A: PAP SMEAR (SUREPATH) CE Patient Name: MELANY POWER : 1960 (Age: 59) Sex: F Institution: [facility] Location: [facility] Date of Collection: 07/12/2020 Date of Reported: 07/16/2020 13:26 Results to: Alfonso Scott MD, BS Alfonso Scott MD CYTOLOGY ORDERABLES Edited Re sult - Final SEE NARRATIVE * (ABNORMAL) Basic metabolic panel (02/03/2020 8:12 PM EST) SODIUM 142 133 - 146 mmol/L [facility] CHLORIDE 103 96 - 108 mmol/L [facility] POTASSIUM 4.2 3.3 - 5.1 mmol/L [facility] CO2 27 21 - 35 mmol/L [facility] BUN 18 6 - 19 mg/dL [facility] CREATININE 0.60 0.5 - 1.5 mg/dL [facility] GLUCOSE 105(H) 70 - 99 mg/dL [facility] CALCIUM 10.0 8.4 - 10.3 mg/dL [facility] EGFR 99 >59 mL/min/1.7 3m2 [facility] Comment:If patient is black, multiply result by 1.159. Estimated glomerular filtration rate calculated using the CKD-EPI equation. ANION GAP 16 10 - 20 mmol/L [facility] Blood 02/03/2020 8:12 PM EST 02/03/2020 8:20 PM EST Deep Hurtado MD LAB BLOOD ORDERABLES Final Re sult [facility] [address] [place] [address] from Last 3 Months or Most Recently Relevant to Health Maintenance Insurance [facility] PPO [facility] MEDICARE PART A & B [employer] BENEFITS ADMINISTRATORS [facility] MEDICARE PART A & B [facility] BENEFITS ADMINISTRATORS [facility] MEDIC[facility] A & B [facility] ADMINISTRATORS S MEDICARE PART A & B [employer] ADMINISTRATORS [facility] MEDICARE PART A & B [employer] [facility] ADMINISTRATORS [facility] PPO [facility] MEDICARE PART A & B [facility] BENEFITS ADMINISTRATORS Care Teams Billboard Poster Relationship Specialty Start Date End Date Raul Medina MD [address] [place] [address] [place] [address] PCP - General Internal Medicine 10/25/17 Pcp, Unknown 09/18/17 Raul Medina MD [address] [place] [address] [address] Historical LMR Provider 09/13/17 Maninder Warren MD [address] [place] [address] Historical LMR Provider 09/13/17 Additional Source Comments The information contained in this document represents components of the legal health record. It is not the complete legal health record.[facility]
--- OUTSIDE RECORDS SUMMARY | 2025-08-21 15:50 | XMS_ITS | Encounter Summary ---
Author Organization [facility] Address [address] [place] [address] Phone Care Team Providers Care White Sugar Boiler Name Role Phone Raul Medina MD Primary Care Provider [phone] Pcp, Unknown Unavailable Unavailable Raul Medina MD Unavailable [phone] Maninder Warren MD Unavailable [phone] Encounter Details Date Type Department Care Team (Late Contact Info) Description 11/26/2020 Ancillary Orders Virtual Department [address] [place] [address] Raul Medina MD [address] [place] [address] [place] [address] Breast screening Social History Tobacco Use Types [...] (Late Contact Info) Description 05/08/2025 Procedure Pass [address] [address] 12/07/2025 9:15 AM EST Appointment [address] [address] Raul Medina MD [address] [place] [address] Dr Baez [place] V[place] [address] documented as of this encounter Results * [...] unspecified documented in this encounter Care Teams White Sugar Boiler Relationship Specialty Start Date End Date Raul Medina MD [address] [place] [address] [place] [address] PCP - General Internal Medicine 10/25/17 Pcp, Unknown 09/18/17 Raul Medina MD [address] [place] [address] [place] [address] Historical LMR Provider 09/13/17 Maninder Warren MD [address] [place] [address] Historical LMR Provider 09/13/17 documented as of this encounter Additional Source Comments The information contained in this document represents components of the legal health record. It is not the complete legal health record.[facility]
--- OUTSIDE RECORDS SUMMARY | 2025-08-21 15:50 | XMS_ITS | Encounter Summary ---
Author Organization [facility] Address [address] [place] [address] Phone Care Team Providers Care Sales Operations Associate Name Role Phone Raul Medina MD Primary Care Provider [phone] Pcp, Unknown Unavailable Unavailable Raul Medina MD Unavailable [phone] Maninder Warren MD Unavailable [phone] Encounter Details Date Type Department Care Team (Late st Contact Info) Description 11/12/2021 Procedure Pass [address] [address] Social History Tobacco Use Types Packs/Day Years [...] st Contact Info) Description 05/08/2025 Procedure Pass [address] [address] 12/07/2025 9:15 AM EST Appointment [address] [address] Raul Medina MD [address] [place] [address] [place] [address] documented as of this encounter Visit Diagnoses Not on filedocumented in this encounter Care Teams Sales Operations Associate Relationship Specialty Start Date End Date Raul Medina MD [address] [place] [address] [place] [address] PCP - General Internal Medicine 10/25/17 Pcp, Unknown 09/18/17 Raul Medina MD [address] [place] [address] [place] [address] Historical LMR Provider 09/13/17 Maninder Warren MD [address] [place] [address] Historical LMR Provider 09/13/17 documented as of this encounter Additional Source Comments The information contained in this document represents components of the legal health record. It is not the complete legal health record.[facility]
[2025-09-03 12:47] VITALS: BMI 23.6
--- NOTE | 2025-09-04 09:29 | HO.ANESPROP2 ---
Documented by User: Janice Mclaughlin NP 09/04/25 09:30 HPI - Anesthesia Eval Consult details Narrative: 64 yr old female for colonoscopy PMF Active Problems Active Problems: All Active Problems Carotid artery disease (Acute) Screening for diabetes mellitus (Acute) Anxiety (Acute) Alcohol use (Acute) Screening for hypercholesterolemia (Acute) Renal stone (Acute) Liver lesion (Acute) Abdominal pain, right lateral (Acute) Bilateral kidney stones (Acute) Physical exam (Acute) Diarrhea (Acute) Physical exam (Acute) Hypothyroidism (Acute) Hypertension (Acute) Past Medical History Medical History TIA (transient ischemic attack) Carotid artery disease Hypothyroidism Hypertension Family History Family History Father Pernicious anemia Hypertension Hyperthyroidism Myocardial infarction Diabetes Mother Hyperthyroidism Acute CVA (cerebrovascular accident) Valvular heart disease Paternal Grandmother Pernicious anemia Brother Hyperthyroidism Hypertension Surgical History Surgical History History of right-sided carotid endarterectomy History of parathyroidectomy History of wisdom tooth extraction History of tubal ligation Social History Social History (Updated 09/03/25 @ 12:47 by Alicia Monge RN) Housing: House Alcohol intake: current Alcohol intake frequency: a few times a week Patient Tobacco Use Status: Never used Tobacco e-Cigarette/Vaping Use: Never Used Second Hand Smoke Exposure: No Use of substances other than those prescribed or required for medical reasons: No Advance Directives: No Advance Directives Information Provided: Yes service: No Current occupational status: employed Cognitive needs: No Hearing needs: No Vision needs: Yes (glasses) Meds Allergies Allergy/AdvReac Type Severity Reaction Status Date / Time No Known Allergies Allergy Verified 08/06/25 08:23 Home Medications ?Medication ?Instructions ?Recorded ?Confirmed ?Last Taken ?Type clobetasol 0.05 % topical ointment g topical 2XW 10/02/20 08/06/25 Unknown History aspirin 81 mg tablet,delayed 81 mg PO DAILY 10/20/24 09/03/25 Unknown History release ezetimibe 10 mg tablet 10 mg PO DAILY 10/20/24 09/03/25 Unknown History Exam Height,Weight and Vital Signs: Height 5 ft 6 in Weight 66.406 kg Documented by User: Jamia Jha MD 09/05/25 08:21 [facility] Past Medical History Medical History TIA (transient ischemic attack) Carotid artery disease Hypothyroidism Hypertension Family History Family History Father Pernicious anemia Hypertension Hyperthyroidism Myocardial infarction Diabetes Mother Hyperthyroidism Acute CVA (cerebrovascular accident) Valvular heart disease Paternal Grandmother Pernicious anemia Brother Hyperthyroidism Hypertension Family history of problems with anesthesia: No Surgical History Surgical History History of right-sided carotid endarterectomy History of parathyroidectomy History of wisdom tooth extraction History of tubal ligation History of Problems with Anesthesia: No Social History Social History (Updated 09/03/25 @ 12:47 by Alicia Monge RN) Housing: House Alcohol intake: current Alcohol intake frequency: a few times a week Patient Tobacco Use Status: Never used Tobacco e-Cigarette/Vaping Use: Never Used Second Hand Smoke Exposure: No Use of substances other than those prescribed or required for medical reasons: No Advance Directives: No Advance Directives Information Provided: Yes service: No Current occupational status: employed Cognitive needs: No Hearing needs: No Vision needs: Yes (glasses) Meds Allergies Allergy/AdvReac Type Severity Reaction Status Date / Time No Known Allergies Allergy Verified 08/06/25 08:23 Home Medications ?Medication ?Instructions ?Recorded ?Confirmed ?Last Taken ?Type clobetasol 0.05 % topical ointment g topical 2XW 10/02/20 08/06/25 Unknown History aspirin 81 mg tablet,delayed 81 mg PO DAILY 10/20/24 09/03/25 Unknown History release ezetimibe 10 mg tablet 10 mg PO DAILY 10/20/24 09/03/25 Unknown History Exam Airway Mallampati Class: II (implant top front) TM Dist: >3cm Neck ROM: Full Heart: rrr Lungs: cta Assessment and Plan Assessment Anesthesia Assessment: Anesthesia Plan Discussed and Chart Reviewed Final Anesthetic Review Family History of Problems with Anesthesia: No History of Problems with Anesthesia: No NPO: Yes ASA Class: II Final Preanesthetic Review: No Changes in Pt Med Stat, Meds/Allgs Chart Reviewed and Consent Obtained/Reviewed Patient Risk: Low Procedure Risk: Low Anesthetic Plan Anesthetic Plan: MAC: Disposition: Standard PACU
[2025-09-05 07:28] VITALS: BMI 23.2
[2025-09-05 07:41] VITALS: BP 174/89; PULSE 74; RESP 16; TEMP 36.4; O2SAT 97
[2025-09-05] MEDS: Lactated Ringers 1,000 ML 100 ML IVCONT (07:41)
[2025-09-05 09:55] VITALS: BP 131/74; PULSE 74; RESP 14; TEMP 36.2; O2SAT 98
--- NOTE | 2025-09-05 10:00 | PM.OP ---
Brief Operative Note Date of Service: 09/05/25 Pre-op diagnosis: Screening Post-op diagnosis: other (Polyp) Procedure: Colonoscopy to the cecum and TI with bx/removal of polyp Surgeon: Hayder Long MD Anesthesia: MAC Was an [employer] used for this Procedure?: No Estimated blood loss (mL): 2.0 Pathology: other (A. Ascending colon polyp) Condition: stable Disposition: PACU
[2025-09-05 10:10] VITALS: BP 141/68; PULSE 65; RESP 16; TEMP 36.2; O2SAT 98
[2025-09-05 10:23] VITALS: BP 142/66; PULSE 67; RESP 16; TEMP 36.2; O2SAT 99
--- NOTE | 2025-09-05 11:08 | OP_ITS ---
DATE OF SERVICE: 09/05/2025 SURGEON: Hayder Long MD INDICATIONS: Patient presents for evaluation of colorectal cancer screening. Full consent has been obtained from her for this, including risks of bleeding and perforation. PREOPERATIVE DIAGNOSIS: Colorectal cancer screening. POSTOPERATIVE DIAGNOSIS: PROCEDURE PERFORMED: Colonoscopy to the cecum and terminal ileum with biopsy and removal of polyp. ESTIMATED BLOOD LOSS: COMPLICATIONS: ANESTHESIA: Medication use, monitored anesthesia care. ASSISTANTS: SPECIMENS: POSTOPERATIVE DIAGNOSES: Colorectal cancer screening, small colon polyp, diverticulosis, and internal hemorrhoids. DESCRIPTION OF PROCEDURE: Patient was placed in the left lower decubitus position. The digital rectal exam revealed no abnormalities. The Olympus video pediatric colonoscope was entered into the rectum and advanced easily to the cecum. Once in the cecum, I did identify normal-appearing cecal pouch with appendiceal orifice and a normal-appearing ileocecal valve. The terminal ileum was cannulated and appeared normal. The scope was withdrawn back in the colon. The entire cecum and ileocecal valve appeared normal. The scope was then slowly withdrawn assessing all mucosal surfaces carefully. Preparation was excellent. In the proximal ascending colon, there was a flat, approximately 3 or 4 mm polyp, which was biopsied and completely removed with cold biopsy forceps. I did not visualize any other polyps, colitis, nor angiodysplasia. There was a mild amount of sigmoid diverticulosis. In the rectum, scope was retroflexed visualizing internal hemorrhoids, but no other pathology. The rectal mucosa appeared normal. The scope was straightened and withdrawn from the patient. She tolerated the procedure well and was returned to recovery area in stable condition. IMPRESSION: 1. Small colon polyp. 2. Diverticulosis. 3. Internal hemorrhoids. PLAN: The results of biopsy will be checked. If this happens to be a tubular adenoma I would recommend a followup colonoscopy in 5 years . If it is only hyperplastic, I would recommend a followup coloscopy in 10 years. She was advised to resume her aspirin tomorrow morning. She will see me otherwise on a p.r.n. basis. MD ELISA Bullard/JAYDON / [id number] LUI
== END 2025-09-05 10:44 | disposition home or self-care (01) ==
PROVIDERS: Visit Provider Internal Medicine
PROC: 0DJD8ZZ Inspection of Lower Intestinal Tract, Via Natural or Artificial Opening Endoscopic (ICD-10-PCS; CPT 45378; principal; 2025-09-05 08:30)
DX: Z12.11 Encounter for screening for malignant neoplasm of colon (principal); Z80.0 Family history of malignant neoplasm of digestive organs; R93.2 Abnormal findings on diagnostic imaging of liver and biliary tract; D12.2 Benign neoplasm of ascending colon; K57.30 Diverticulosis of large intestine without perforation or abscess without bleeding; K64.8 Other hemorrhoids; R16.0 Hepatomegaly, not elsewhere classified
CPT/HCPCS: 45380; 88305; J2250; J2704